=== PATIENT | male | born 1950 | race Caucasian/White ===

== ENCOUNTER → 2018-05-06 07:13 | Outpatient (CLI) | payer MEDICARE, MEDICAID, SELFPAY ==
[2018-05-06 08:38] LABS: Add Manual Diff / Slide Review NO; Basophils Percent Auto 0.7 % (0-2); Eosinophils Percent Auto 6.3 % (2-4); Hematocrit 40.4 % (41-53); Hemoglobin 13.9 g/dL (13.5-17.5); Lymphocytes Percent Auto 27.2 % (25-40); Mean Corpuscular HGB Conc 34.5 % (30-36); Mean Corpuscular Hemoglobin 31.1 PG (26-34); Mean Corpuscular Volume 90.1 fL (80-100); Monocytes Percent Auto 8.4 % (3-14); Neutrophils Absolute Auto 3700 /uL (3000-5900); Neutrophils Percent Auto 57.4 % (50-75); Platelet Count 120 X10^3/uL (150-400); Red Blood Cell Count 4.49 X10^6/uL (4.5-5.9); Red Cell Distribution Width 13.4 % (11.6-14.8); White Blood Cell Count 6.5 X10^3/uL (4.5-11.0)
[2018-05-06 08:43] LABS: BUN Creatinine Ratio 36.4 (6-22); Blood Urea Nitrogen 40 mg/dL (9-20); Calcium 8.6 mg/dL (8.4-10.2); Carbon Dioxide 25 mmol/L (22-32); Chloride 106 mmol/L (98-107); Cholesterol 196 mg/dL (140-199); Estimated Glomerular Filt Rate > 60.0 mL/min (>60); Glucose 152 mg/dL (80-110); HDL Cholesterol 27 mg/dL (40-60); HEMOLYSIS < 15 (0-50); LDL Cholesterol Calculated 111 mg/dL (<100); Potassium 4.9 mmol/L (3.4-5.1); Sodium 142 mmol/L (137-145); Triglycerides 288 mg/dL (35-150)
[2018-05-06 08:57] LABS: Hemoglobin A1C% w Est Avg Glu 5.9 % (4.0-6.0)
[2018-05-06 09:27] LABS: Hep C Virus Ab w/Reflex Quant NEGATIVE s/c (NEGATIVE)
== END ==
PROVIDERS: PCP Family Medicine; Visit Provider Internal Medicine Cardiovascular Disease
DX: I10 Essential (primary) hypertension (principal); E78.5 Hyperlipidemia, unspecified; E11.9 Type 2 diabetes mellitus without complications; Z20.5 Contact with and (suspected) exposure to viral hepatitis; E78.2 Mixed hyperlipidemia
CPT/HCPCS: 36415; 80048; 80061; 83036; 85025; 86803

== ENCOUNTER → 2018-06-28 07:06 | Outpatient (CLI) | payer MEDICARE, MEDICAID, SELFPAY ==
[2018-06-28 09:05] LABS: BUN Creatinine Ratio 18.3 (6-22); Blood Urea Nitrogen 22 mg/dL (9-20); Calcium 8.8 mg/dL (8.4-10.2); Carbon Dioxide 31 mmol/L (22-32); Chloride 103 mmol/L (98-107); Estimated Glomerular Filt Rate > 60.0 mL/min (>60); Glucose 90 mg/dL (80-110); HEMOLYSIS < 15 (0-50); Potassium 4.4 mmol/L (3.4-5.1); Sodium 143 mmol/L (137-145)
== END ==
PROVIDERS: PCP Family Medicine; Visit Provider Internal Medicine Advanced Heart Failure and Transplant Cardiology
DX: I25.5 Ischemic cardiomyopathy (principal); I42.9 Cardiomyopathy, unspecified
CPT/HCPCS: 36415; 80048

== ENCOUNTER 2018-07-06 13:14 | Day surgery (SDC) | payer MEDICARE, MEDICAID, SELFPAY ==
[2018-07-06] VITALS (7 sets, daily range): BP systolic 80–131; BP diastolic 54–75; PULSE 64–77; RESP 12–18; TEMP 36.4–36.8; O2SAT 95–97; BMI 27.8
[2018-07-06] MEDS: SODIUM CHLORIDE 0.9% 1,000 ML 42 ML IV (14:28)
--- NOTE | 2018-07-06 15:15 | PM.HP.1 ---
History of Present Illness Date Patient Seen: 07/06/18 Time Patient Seen: 15:15 Chief complaint: Colonoscopy; [id number] Narrative: First screening colonoscopy Patient History Medical History Atrial fibrillation (Acute) Chronic anticoagulation (Acute) Congestive heart failure (Acute) Diabetes mellitus (Acute) Hypertension (Acute) Family & Social History Social History: household members significant other Tobacco & Substance use: Smoking Status Never smoker Meds Home Medications Medication Instructions Recorded Confirmed Type warfarin [Jantoven] 5 mg PO #0 05/10/13 03/24/18 History carvedilol [Coreg] 12.5 mg PO BID #0 06/25/17 03/24/18 History gabapentin [Neurontin] 300 mg PO HS #60 cap 12/31/17 03/24/18 Rx glipizide 1 tab PO BID #60 tab 01/19/18 03/24/18 Rx Disabled Parking Permit ea #1 01/24/18 03/24/18 Rx amlodipine 10 mg PO QDAY #0 02/21/18 03/24/18 History metformin 1,000 mg PO BID #60 tab 06/06/18 Rx blood sugar diagnostic strips #100 each 06/23/18 Rx lisinopril 2.5 mg tablet 2.5 mg PO BID #180 tab 06/23/18 Rx Allergies Allergy/AdvReac Type Severity Reaction Status Date / Time No Known Drug Allergies Allergy Verified 07/06/18 14:46 Exam Vital Signs (past 8 hours): - 07/06/18 14:30 Temperature 97.5 F L Pulse Rate 67 Respiratory Rate 12 Blood Pressure 131/71 H Pulse Oximetry 97 Oxygen Delivery Method Room Air Narrative Exam Narrative: Oropharynx free of lesion Chest clear to auscultation and percussion but with decreased breath sounds throughout Cardiac exam reveals no S3 or murmur Assessment & Plan Plan: Assessment/Plan Narrative: Need for 1st screening colonoscopy We have obtained clearance from Cardiology to hold warfarin for the last 5 days which he has done. They have also given him clearance for his pacemaker defibrillator. I do not expect will need to use any cautery.
--- NOTE | 2018-07-06 15:46 | PM.OP.ENDO ---
Operative Date/Time/Diagnoses Date of procedure: 07/06/18 Time of procedure: 15:46 Pre-op diagnosis: See indications Post-op diagnosis: same (See findings) Procedure & Clinicians Study performed: Colonoscopy Same procedure as scheduled: Yes Indications: Screening, 1st colonoscopy Surgeon: Carla Shin Procedure Notes Procedure in detail: After informed consent was obtained the patient was placed in left lateral decubitus position. The video colonoscope was introduced the rectum slowly advanced to the cecum. Colon was quite long but eventually the cecum was reached. Preparation was good but not excellent. On slow withdrawal mucosa was carefully examined. Scope was removed patient tolerated procedure well Blood loss none complications none Sedation Mac per anesthesia Findings 1. Extensive diverticulosis throughout colon with significant looping and a very long colon. 2. Otherwise negative colonoscopy to cecum Patient will need follow-up colonoscopy in 10 years. He should restart his Coumadin today.
== END 2018-07-06 16:27 ==
LOC: ENDO 13:15
PROVIDERS: PCP Family Medicine; Visit Provider Internal Medicine Gastroenterology
PROC: 0DJD8ZZ Inspection of Lower Intestinal Tract, Via Natural or Artificial Opening Endoscopic (ICD-10-PCS; CPT 45378; principal; 2018-07-06 15:00)
DX: Z12.11 Encounter for screening for malignant neoplasm of colon (principal); Z80.0 Family history of malignant neoplasm of digestive organs; I48.91 Unspecified atrial fibrillation; Z79.01 Long term (current) use of anticoagulants; I25.5 Ischemic cardiomyopathy; Z95.0 Presence of cardiac pacemaker; Z95.1 Presence of aortocoronary bypass graft; E11.9 Type 2 diabetes mellitus without complications; I10 Essential (primary) hypertension; Z79.84 Long term (current) use of oral hypoglycemic drugs; Z87.891 Personal history of nicotine dependence; K57.30 Diverticulosis of large intestine without perforation or abscess without bleeding
CPT/HCPCS: G0105; J2250; J2704; J3010

== ENCOUNTER 2018-08-26 08:18 | Emergency (ER) | payer MEDICARE, MEDICAID, SELFPAY ==
--- NOTE | 2018-08-26 08:18 | ED_ITS ---
HPI - General Adult General Chief complaint: Weakness Stated complaint: overheated, got wobbly, fell down Time Seen by Provider: 08/26/18 08:18 Source: patient Mode of arrival: wheelchair Limitations: no limitations History of Present Illness HPI narrative: 68-year-old male with history of diabetes, hypertension, congestive heart failure here for evaluation of an episode that he had this morning. He states that approximately 1 hr prior to arrival he was laying in bed. He states that he was awake. He states that he tried to get up but was unable to. He states that he felt like he was overheated. He states that he was while we. Denies any other symptoms at the time to include chest pain, lightheadedness, vision changes, nausea and vomiting. He stated that he did not fall this morning he just could not get up off of his knees. He was able to make it to the phone to call his friend. He checked his blood sugar at home and it was 143. He stated that he felt like his blood sugar was low. States the time of his arrival here in the emergency department feels much better than when he did this morning. Related Data Home Medications Medication Instructions Recorded Confirmed warfarin [Jantoven] 5 mg PO #0 05/10/13 03/24/18 Disabled Parking Permit 1 ea MISCELLANEOUS DIRECTED 08/26/18 08/26/18 carvedilol 3 tab PO BIDWM 08/26/18 08/26/18 clopidogrel 1 tab PO DAILY 08/26/18 08/26/18 fluorouracil 1 applic TOPICAL [id number] 08/26/18 08/26/18 gabapentin [Neurontin] 300 mg PO BID 08/26/18 08/26/18 metformin 1,000 mg PO BIDWM 08/26/18 08/26/18 rosuvastatin 2.5 mg PO MOWEFR 08/26/18 08/26/18 warfarin 1 tab PO SUTUTHSA 08/26/18 08/26/18 warfarin 2.5 mg PO MOWE 08/26/18 08/26/18 Previous Rx's Medication Instructions Recorded blood sugar diagnostic strips #100 each 06/23/18 lisinopril 2.5 mg tablet 2.5 mg PO BID #180 tab 06/23/18 glipizide 5 mg tablet 5 mg PO BID #60 tab 09/21/18 Allergies Allergy/AdvReac Type Severity Reaction Status Date / Time No Known Drug Allergies Allergy Verified 07/06/18 14:46 Review of Systems Constitutional Denies chills, Denies headache(s) and Reports weakness Eyes Denies change in vision ENT Ears, Nose, Mouth, and Throat: Denies vertigo, Denies dizziness and Denies headache(s) Cardiovascular Denies chest pain, Reports diaphoresis, Denies rapid heart rate, Denies palpitations, Denies dyspnea and Denies slow heart rate Respiratory Denies cough and Denies dyspnea Gastrointestinal Gastrointestinal: Denies abdominal pain, Denies dyspepsia, Denies nausea and Denies vomiting Genitourinary Denies dysuria Musculoskeletal Denies myalgias and Denies arthralgias Integumentary/Breasts Denies lesions and Denies rash Neurologic Denies confusion, Denies vertigo, Denies dizziness, Denies headache(s) and Reports weakness Psychiatric Denies confusion Endocrine Denies palpitations Hematologic/Lymphatic Denies easy bleeding and Denies easy bruising PFSH Medical History Atrial fibrillation (Acute) Chronic anticoagulation (Acute) Congestive heart failure (Acute) Diabetes mellitus (Acute) Hypertension (Acute) Surgical History History of permanent cardiac pacemaker placement (Acute) Social History household members: significant other Smoking Status: Never smoker Exam Initial Vital Signs Initial Vital Signs: Vital Signs Temperature 98.2 F 08/26/18 08:27 Pulse Rate 78 08/26/18 08:27 Respiratory Rate 18 08/26/18 08:27 Blood Pressure 127/70 08/26/18 08:27 Pulse Oximetry 100 08/26/18 08:27 Const General: cooperative, comfortable, well developed, well groomed and No acute distress Orientation: alert, awake and oriented x3 HENMT Head: normal to inspection and normocephalic Resp Effort & Inspection: normal respiratory effort Auscultation: clear to auscultation bilaterally Cardio Rate: regular rate Rhythm: regular rhythm Pulses: radial pulses present GI Inspection: non-distended Palpation: soft, No firm and No tender Other: Diastasis recti Back/Spine/Pelvis Back: No CVA tenderness Skin Lesions: no lesions Rashes: no rashes Neuro General: alert, awake and oriented x3 Cognition: normal cognition Motor: muscle tone normal throughout Sensory Exam: no sensory deficits noted Extrem General: normal to inspection and capillary refill normal Psych Appearance: grossly normal and well kempt Course Orders Ordered: ED Orders 08/26/18 08:19 EKG-12 Lead Stat 08/26/18 08:30 Complete Blood Count AUTO DIFF Stat Comprehensive Metabolic Panel Stat Partial Thromboplastin Time Stat Prothrombin Time INR Stat Discontinued Medications Sodium Chloride (Normal Saline 0.9%) 1,000 mls @ 500 mls/hr IV BOLUS ONE Stop: 08/26/18 10:22 Last Infusion: 08/26/18 10:09 Dose: 0 mls/hr Admin: 08/26/18 08:38 Dose: 500 mls/hr Vital Signs - 8 hr 08/26/18 08:27 08/26/18 10:14 Temperature 98.2 F Pulse Rate 78 Respiratory Rate 18 Blood Pressure 127/70 Pulse Oximetry 100 100 Medical Decision Making Lab Data Lab results reviewed: Yes I reviewed the patient's lab results. Result diagrams: 08/26/18 08:30 08/26/18 08:30 Lab Results 08/26/18 08/26/18 08/26/18 Range/Units 08:30 08:30 08:30 WBC 7.3 (4.5-11.0) X10^3/uL RBC 4.51 (4.5-5.9) X10^6/uL Hgb 14.2 (13.5-17.5) g/dL Hct 41.0 (41-53) % MCV 90.9 (80-100) fL MCH 31.4 (26-34) PG MCHC 34.5 (30-36) % RDW 13.1 (11.6-14.8) % Plt Count 96 L (150-400) X10^3/uL Neut % (Auto) 76.9 H (50-75) % Lymph % (Auto) 11.5 L (25-40) % [place] % (Auto) 9.9 (3-14) % Eos % (Auto) 1.1 L (2-4) % Baso % (Auto) 0.6 (0-2) % Neut # (Auto) 5600 (6924-6087) /uL PT 26.1 H (10.1-12.7) SECONDS INR 2.4 H (0.9-1.3) APTT 41 H (26.4-36.2) SECONDS Sodium 142 (137-145) mmol/L Potassium 4.5 (3.4-5.1) mmol/L Chloride 105 (98-107) mmol/L Carbon Dioxide 26 (22-32) mmol/L BUN 24 H (9-20) mg/dL Creatinine 1.10 (0.66-1.25) mg/dL Estimated GFR > 60.0 (>60) mL/min BUN/Creatinine Ratio 21.8 (6-22) Glucose 153 H (80-110) mg/dL Calcium 8.8 (8.4-10.2) mg/dL Total Bilirubin 1.4 H (0.2-1.3) mg/dL AST 24 (17-59) IU/L ALT 25 (21-72) IU/L Alkaline Phosphatase 65 (38-126) U/L Total Protein 7.4 (6.3-8.2) g/dL Albumin 4.4 (3.5-5.0) g/dL Globulin 3.0 (1.7-4.1) g/dL Albumin/Globulin Ratio 1.5 (1.0-2.8) Point of Care Testing Glucose POC 144 Point of care testing: Point of Care Testing Glucose POC 144 ECG Data Attestation: I personally reviewed and interpreted this ECG as follows: Prior ECG tracings: not available for review Interpretation: Ventricular paced Rate is [address] changes concerning for ischemia MDM Narrative Medical decision making narrative: Patient was able to tolerate oral intake. Had no focal neurologic deficits here in the emergency department. Did ambulate around the emergency department a little slower than normal according to him but without any weakness. It appears that his pacemaker is working appropriately. He is not hypoglycemic. His electrolytes are unremarkable. Consider doing a head CT however given his nonfocal exam and the fact that he did not hit his head I feel that we could hold on this for now. He is on Coumadin and his INR is 2.4. I did inform the patient of this. Unsure the exact etiology of his symptoms however they do seem to be almost completely resolved by now. Doubt CVA. Symptoms are not consistent with TIA. He was not hypoglycemic. Doubt arrhythmia given his lack of other symptoms. This could be a period of hypotension since he was getting up from a lying position at the time. He has not been hypotensive here in the emergency department I did discuss all this with the patient. Will hold on further workup for now. He was given return precautions. He expressed understanding and agreement with plan. Discharge Plan Departure Patient Disposition: Home Clinical Impression: Weakness Instructions: DI for Muscle Weakness, DI for Dizziness-Nonvertigo Activity Restrictions/Additional Instructions: Continue all of your medications as directed. Make sure your increasing your fluid intake. If your symptoms return or if you develops any new symptoms return to the emergency department for further evaluation. Prescriptions: No Action warfarin [Jantoven] 5 MG tablet 5 mg PO Qty: 0 RF: 0 lisinopril 2.5 mg tablet 2.5 mg PO BID Qty: 180 RF: 3 blood sugar diagnostic [True Metrix Glucose Test Strip] strip .ROUTE .MEDSUPPLY Qty: 100 RF: 3 glipizide 5 mg tablet 5 mg PO BID Qty: 60 RF: 5 carvedilol 6.25 mg tablet 3 tab PO BIDWM RF: 0 fluorouracil 5 % cream 1 applic Topical [id number] RF: 0 clopidogrel 75 mg tablet 1 tab PO DAILY RF: 0 warfarin 5 mg tablet 1 tab PO SUTUTHSA RF: 0 warfarin 5 mg tablet 2.5 mg PO MOWE RF: 0 rosuvastatin 5 mg tablet 2.5 mg PO MOWEFR RF: 0 gabapentin [Neurontin] 300 MG capsule 300 mg PO BID RF: 0 Disabled Parking Permit 1 ea miscellaneous DIRECTED RF: 0 metformin 1,000 mg tablet 1,000 mg PO BIDWM RF: 0
[2018-08-26 08:27] VITALS: BP 127/70; PULSE 78; RESP 18; TEMP 36.8; O2SAT 100; BMI 27.6
[2018-08-26] MEDS: SODIUM CHLORIDE 0.9% 1,000 ML 500 ML IV (08:38)
[2018-08-26 08:41] LABS: Add Manual Diff / Slide Review NO; Basophils Percent Auto 0.6 % (0-2); Eosinophils Percent Auto 1.1 % (2-4); Hemoglobin 14.2 g/dL (13.5-17.5); Lymphocytes Percent Auto 11.5 % (25-40); Mean Corpuscular HGB Conc 34.5 % (30-36); Mean Corpuscular Hemoglobin 31.4 PG (26-34); Mean Corpuscular Volume 90.9 fL (80-100); Monocytes Percent Auto 9.9 % (3-14); Neutrophils Absolute Auto 5600 /uL (3000-5900); Neutrophils Percent Auto 76.9 % (50-75); Platelet Count 96 X10^3/uL (150-400); Red Blood Cell Count 4.51 X10^6/uL (4.5-5.9); Red Cell Distribution Width 13.1 % (11.6-14.8); White Blood Cell Count 7.3 X10^3/uL (4.5-11.0)
[2018-08-26 08:48] LABS: INR 2.4 (0.9-1.3); Prothrombin Time 26.1 SECONDS (10.1-12.7)
[2018-08-26 08:50] LABS: PTT Partial Thromboplastin Tim 41 SECONDS (26.4-36.2)
[2018-08-26 08:52] LABS: Alanine Aminotransferase 25 IU/L (21-72); Albumin 4.4 g/dL (3.5-5.0); Albumin Globulin Ratio 1.5 (1.0-2.8); Alkaline Phosphatase 65 U/L (38-126); Aspartate Aminotransferase 24 IU/L (17-59); BUN Creatinine Ratio 21.8 (6-22); Bilirubin Total 1.4 mg/dL (0.2-1.3); Blood Urea Nitrogen 24 mg/dL (9-20); Calcium 8.8 mg/dL (8.4-10.2); Carbon Dioxide 26 mmol/L (22-32); Chloride 105 mmol/L (98-107); Estimated Glomerular Filt Rate > 60.0 mL/min (>60); Glucose 153 mg/dL (80-110); HEMOLYSIS < 15 (0-50); Potassium 4.5 mmol/L (3.4-5.1); Sodium 142 mmol/L (137-145); Total Protein 7.4 g/dL (6.3-8.2)
[2018-08-26 10:14] VITALS: O2SAT 100
[2018-08-26 10:35] VITALS: BP 125/67; PULSE 75; RESP 16; O2SAT 98
== END 2018-08-26 10:36 | disposition home or self-care (01) ==
PROVIDERS: Emergency Provider Emergency Medicine; PCP Family Medicine
DX: R53.1 Weakness (principal)
CPT/HCPCS: 36591; 80053; 82962; 85025; 85610; 85730; 93005; 93010; 93041; 96360; 96361; 99283; 99284

== ENCOUNTER → 2018-09-19 07:04 | Outpatient (CLI) | payer MEDICARE, MEDICAID, SELFPAY ==
[2018-09-19 09:02] LABS: Hemoglobin A1C% w Est Avg Glu 5.8 % (4.0-6.0)
[2018-09-19 09:34] LABS: Vitamin D 25 Hydroxy (D3) 18.7 ng/mL (30.0-100.0)
== END ==
PROVIDERS: PCP Student in an Organized Health Care Education/Training Program; Visit Provider Student in an Organized Health Care Education/Training Program
DX: E55.9 Vitamin D deficiency, unspecified (principal); E11.9 Type 2 diabetes mellitus without complications
CPT/HCPCS: 36415; 82306; 83036

== ENCOUNTER 2018-11-10 08:30 | Outpatient (RCR) | payer MEDICARE, MEDICAID, SELFPAY ==
[2018-08-16 10:44] VITALS: BP 128/84; BP 132/80; BMI 27.8
[2018-09-12 16:02] VITALS: BP 98/60
[2018-10-10 15:43] VITALS: BP 132/70
[2018-11-10 14:37] VITALS: BP 128/70; BMI 27.0
== END 2018-11-23 15:10 ==
LOC: CAR 08:30
PROVIDERS: PCP Family Medicine; Visit Provider Internal Medicine Interventional Cardiology
DX: Z95.5 Presence of coronary angioplasty implant and graft (principal)
CPT/HCPCS: 93798

== ENCOUNTER → 2019-04-14 07:11 | Outpatient (CLI) | payer MEDICARE, MEDICAID, SELFPAY ==
[2019-04-14 08:48] LABS: Blood Urea Nitrogen 27 mg/dL (9-20); Calcium 9.5 mg/dL (8.4-10.2); Carbon Dioxide 27 mmol/L (22-32); Chloride 103 mmol/L (98-107); Estimated Glomerular Filt Rate > 60.0 mL/min (>60); Glucose 150 mg/dL (80-110); HEMOLYSIS < 15 (0-50); Potassium 5.1 mmol/L (3.4-5.1); Sodium 139 mmol/L (137-145)
== END ==
PROVIDERS: PCP Student in an Organized Health Care Education/Training Program; Visit Provider Student in an Organized Health Care Education/Training Program
DX: E11.9 Type 2 diabetes mellitus without complications (principal); E16.2 Hypoglycemia, unspecified; E87.6 Hypokalemia
CPT/HCPCS: 36415; 80048; 83036

== ENCOUNTER → 2019-06-20 07:19 | Outpatient (CLI) | payer MEDICARE, MEDICAID, SELFPAY ==
[2019-06-20 07:48] LABS: Add Manual Diff / Slide Review NO; Basophils Absolute Auto 0 /uL (0-100); Basophils Percent Auto 0.5 % (0-2); Eosinophils Absolute Auto 300 /uL (0-450); Eosinophils Percent Auto 4.5 % (2-4); Hematocrit 38.6 % (41-53); Hemoglobin 13.1 g/dL (13.5-17.5); Lymphocytes Absolute Auto 1400 /uL (1100-4500); Lymphocytes Percent Auto 24.9 % (25-40); Mean Corpuscular Volume 91.2 fL (80-100); Monocytes Absolute Auto 600 /uL (0-900); Monocytes Percent Auto 9.9 % (3-14); Neutrophils Absolute Auto 3400 /uL (1500-7000); Neutrophils Percent Auto 60.2 % (50-75); Platelet Count 102 X10^3/uL (150-400); Red Blood Cell Count 4.23 X10^6/uL (4.5-5.9); Red Cell Distribution Width 12.8 % (11.6-14.8); White Blood Cell Count 5.6 X10^3/uL (4.5-11.0)
== END ==
PROVIDERS: Family Provider Student in an Organized Health Care Education/Training Program; PCP Student in an Organized Health Care Education/Training Program; Visit Provider Internal Medicine Cardiovascular Disease
DX: I10 Essential (primary) hypertension (principal)
CPT/HCPCS: 36415; 85025

== ENCOUNTER → 2019-07-04 07:08 | Outpatient (CLI) | payer MEDICARE, MEDICAID, SELFPAY ==
[2019-07-04 07:49] LABS: Add Manual Diff / Slide Review NO; Basophils Absolute Auto 100 /uL (0-100); Eosinophils Absolute Auto 300 /uL (0-450); Eosinophils Percent Auto 4.6 % (2-4); Hematocrit 41.3 % (41-53); Lymphocytes Absolute Auto 1600 /uL (1100-4500); Lymphocytes Percent Auto 27.7 % (25-40); Mean Corpuscular HGB Conc 33.8 % (30-36); Mean Corpuscular Hemoglobin 30.8 PG (26-34); Mean Corpuscular Volume 91.2 fL (80-100); Monocytes Absolute Auto 500 /uL (0-900); Monocytes Percent Auto 8.2 % (3-14); Neutrophils Absolute Auto 3400 /uL (1500-7000); Neutrophils Percent Auto 58.5 % (50-75); Platelet Count 99 X10^3/uL (150-400); Red Blood Cell Count 4.53 X10^6/uL (4.5-5.9); Red Cell Distribution Width 13.2 % (11.6-14.8); White Blood Cell Count 5.8 X10^3/uL (4.5-11.0)
[2019-07-04 08:08] LABS: Blood Urea Nitrogen 23 mg/dL (9-20); Calcium 9.3 mg/dL (8.4-10.2); Carbon Dioxide 31 mmol/L (22-32); Chloride 102 mmol/L (98-107); Cholesterol 131 mg/dL (140-199); Estimated Glomerular Filt Rate > 60.0 mL/min (>60); Glucose 134 mg/dL (80-110); HDL Cholesterol 41 mg/dL (40-60); HEMOLYSIS < 15 (0-50); LDL Cholesterol Calculated 74 mg/dL (<100); Potassium 4.7 mmol/L (3.4-5.1); Sodium 140 mmol/L (137-145); Triglycerides 82 mg/dL (35-150)
== END ==
PROVIDERS: Family Provider Student in an Organized Health Care Education/Training Program; PCP Student in an Organized Health Care Education/Training Program; Visit Provider Internal Medicine Cardiovascular Disease
DX: I10 Essential (primary) hypertension (principal)
CPT/HCPCS: 36415; 80048; 80061; 85025

== ENCOUNTER → 2019-07-28 07:05 | Outpatient (CLI) | payer MEDICARE, MEDICAID, SELFPAY ==
[2019-07-28 08:28] LABS: BUN Creatinine Ratio 36.7 (6-22); Blood Urea Nitrogen 33 mg/dL (9-20); Calcium 8.8 mg/dL (8.4-10.2); Carbon Dioxide 29 mmol/L (22-32); Chloride 104 mmol/L (98-107); Estimated Glomerular Filt Rate > 60.0 mL/min (>60); Glucose 148 mg/dL (80-110); HEMOLYSIS < 15 (0-50); Potassium 4.4 mmol/L (3.4-5.1); Sodium 142 mmol/L (137-145)
== END ==
PROVIDERS: PCP Student in an Organized Health Care Education/Training Program; Visit Provider Internal Medicine Advanced Heart Failure and Transplant Cardiology
DX: I48.91 Unspecified atrial fibrillation (principal); I25.5 Ischemic cardiomyopathy
CPT/HCPCS: 36415; 80048

== ENCOUNTER → 2019-08-11 07:05 | Outpatient (CLI) | payer MEDICARE, MEDICAID, SELFPAY ==
[2019-08-11 08:12] LABS: Hemoglobin A1C% w Est Avg Glu 6.1 % (4.0-6.0)
[2019-08-11 08:46] LABS: Creatinine Urine Random 39.6 mg/dL
[2019-08-11 08:49] LABS: Prostate Specific Antigen Scrn 0.368 ng/mL (0.1-4.0)
[2019-08-11 09:05] LABS: Microalbumi Creatinin Ratio Ur 1070.7 ug/mg CR (<30); Microalbumin Urine Random 42.4 mg/dL (0-1.6)
== END ==
PROVIDERS: PCP Student in an Organized Health Care Education/Training Program; Visit Provider Student in an Organized Health Care Education/Training Program
DX: E11.9 Type 2 diabetes mellitus without complications (principal); Z12.5 Encounter for screening for malignant neoplasm of prostate
CPT/HCPCS: 36415; 82043; 82570; 83036; G0103

== ENCOUNTER 2019-11-03 14:30 | Outpatient (RCR) | payer MEDICARE, MEDICAID, SELFPAY ==
--- NOTE | 2019-08-22 12:51 | PT.OTN ---
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 Pt reports he feels wobbly and off balance when he is up moving around, denies any rotation vertigo or dizziness with position change . Pt also notes he has CHF, and is on a variety of medication that he feels messes me up. t reports difficulty when trying to sit down, often just ends up plopping into a chair, and also struggles walking down hills or stairs. 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 PT-OP-C Subjective Start: 08/22/19 12:21 Freq: Status: Active Protocol: Document 08/22/19 09:45 DCW (Rec: 08/22/19 12:50 DCW [id number]) OP-PT Subjective Patient Comments Patient Comments Pt notes an overall worsening over the past few months Patient Reported Progress Worse Patient Questionnaires ABC- Activity Specific Balance Confidence Scale ABC Score 56.25% ABC Functional Impairment 40 to <60% Impaired (Score 41- 60) Dizziness Handicap Inventory DHI Score 54% DHI Functional Impairment 40 to 59% Impaired (Score 40- 59) PT-OP-D Balance Start: 08/22/19 12:21 Freq: Status: Active Protocol: Document 08/22/19 09:45 DCW (Rec: 08/22/19 12:50 DCW [id number]) OP-PT Balance Assessment Sitting Balance Static Sitting Balance Ability Normal Dynamic Sitting Balance Ability Normal Standing Balance Static Standing Balance Ability Good Dynamic Standing Balance Ability Fair Balance Tests Chun Balance Test Chun Balance Test Score 49/56 Chun Impairment Rating 1 to 19% Impaired (Score 45-55 ) mCTSIB mCTSIB Position 1 Mild Sway mCTSIB Position 2 Mild Sway mCTSIB Position 3 Mild Sway mCTSIB Position 4 Moderate Sway Chun Balance Assessment Evaluation Sitting to Standing Ability Independent w/out Hands Unsupported Stance Safely- 2 minutes Sitting Unsupported, Feet on Floor Safely- 2 minutes Standing to Sitting Ability Independent, Uncontrolled Transfer Ability Safely, Hand Use Unsupported Stance- Eyes Closed Safely, 10 seconds Unsupported Stance- Eyes Open Independent, 1 minute Reaching Forward Standing Confidently, 10 inches Pick- Up Object From Floor Independent/Safe Look Behind Shoulder - Standing Shifts Weight Well Turning 360 Degrees Turns , < 4 secs Unsupported Stance, Alternating Feet on (I)- 8 Steps in 20 secs Stair Unsupported Tandem Stance Holds Tandem- 30 seconds Unilateral Leg Stance Lifts Leg/Holds 5-10 secs Total Score Chun Total Score (out of 56 points) 49 Chun Impairment Rating 1 to 19% Impaired (Score 45-55 ) Steele Fall Scale Copyright Permission PT-OP-E Functional Tests Start: 08/22/19 12:21 Freq: Status: Active Protocol: Document 08/22/19 09:45 DCW (Rec: 08/22/19 12:50 DCW [id number]) Functional Tests Dynamic Gait Index (DGI) Score 18/24 DGI Impairment Rating 20 to <40% Impaired (Score 15- 19) Functional Gait Assessment Score 19/30 Functional Gait Assessment Impairment 20 to <40% Impaired (Score 19- Rating 24) PT-OP-M Strength Start: 08/22/19 12:21 Freq: Status: Active Protocol: Document 08/22/19 09:45 DCW (Rec: 08/22/19 12:50 DCW [id number]) Hip Strength Hip Manual Muscle Testing Right Flexion (L2) 5 Normal Extension (S1) 4+ Good+ Abduction 5 Normal Adduction 5 Normal Left Flexion (L2) 5 Normal Extension (S1) 4+ Good+ Abduction 5 Normal Adduction 5 Normal Knee Strength Knee Manual Muscle Testing Right Flexion (S2) 5 Normal Extension (L3) 5 Normal Left Flexion (S2) 5 Normal Extension (L3) 5 Normal PT-OP-T Assessment and Plan Start: 08/22/19 12:21 Freq: Status: Active Protocol: Document 08/22/19 09:45 DCW (Rec: 08/22/19 12:50 DCW [id number]) Physical Therapy Assessment Rehab Potential Rehabilitation Potential Good Evaluation Complexity Number of Personal Factors/Comorbidities 1-2 Number of Body Systems Impaired 4 or More Clinical Presentation at Evaluation Unstable Impairments Impairments Balance,Gait,Posture,ROM, Strength Other Concerns Barriers to Rehabilitation Neuropathy, Hx falls, Quad weakness, CHF, Large list of medications Goals Three Impairment Pt unable to work at his job as a household personal assistant [employer] Goal (LTG) Pt to score >90% on the ABC scale, demonstrating increased confidence in his balance, allowing him to return to work . Two Impairment Pt has a history of falls Assisted Goal (LTG) Pt to report no falls on near LOB over a one month period LTG Duration 10/31/19 One Impairment Pt does not have an appropriate home exercise program Short Term Goal (STG) Pt to be independent and compliant with an appropriate HEP STG Duration 09/22/19 Assessment Summary Assessment Pt presents with a multi- factorial balance deficit. Pt has a history of DM II with resulting polyneuropathy, worsening over the past few years. Pt also exhibits overall very good leg strength , however struggles greatly with eccentric quad contraction, resulting in difficulty descending stairs or hills, and an inability to control his descent when attempting to sit down. Pt's static balance (Chun score 49/ 56) is fairly good, however pt 's Dynamic balance ( DGI, FGA) shows limitations and an increased falls risk. Pt will benefit from skilled therapy focusing on balance training, NMR, and eccentric quad strengthening. Physical Therapy Plan Frequency and Duration Frequency of Treatment 2x/Week Duration of Treatment 10 weeks Plan of Care Start Date 08/22/19 Plan of Care End Date 10/31/19 Therapeutic Interventions Therapeutic Interventions Aquatic Therapy,Balance Training,Gait Training,Home Exercise Program,Manual Therapy,Neuromuscular Re- education,Patient/Caregiver Education,Self-Care/Home Management,Soft Tissue Mobilization,Therapeutic Activities,Therapeutic Exercises Next Visit Focus/Plan Next Note Type Treatment Note Next Visit Plan Balance training, Neuromuscular Re-ed, 6MWT, TUG
--- NOTE | 2019-08-22 12:51 | PT.OPPOC ---
Current Diagnoses Type 2 diabetes mellitus without complications (08/22/19) Other abnormalities of gait and mobility (08/22/19) History of falling (08/22/19) Visit Care Team Role Provider Type Alessandro Boo MD Attending Provider Physician Primary Care Provider Specialty: Internal Medicine Address: [address] [place] [address], [address] [place] [address], [id number] Email: [email or web address] Plan Of Care PT-OP-T Assessment and Plan Start: 08/22/19 12:21 Freq: Status: Active Protocol: Document 08/22/19 09:45 DCW (Rec: 08/22/19 12:50 DCW [id number]) Physical Therapy Assessment Rehab Potential Rehabilitation Potential Good Evaluation Complexity Number of Personal Factors/Comorbidities 1-2 Number of Body Systems Impaired 4 or More Clinical Presentation at Evaluation Unstable Impairments Impairments Balance,Gait,Posture,ROM, Strength Other Concerns Barriers to Rehabilitation Neuropathy, Hx falls, Quad weakness, CHF, Large list of medications Goals Three Impairment 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 Two Impairment Pt has a history of falls Alf Goal (LTG) Pt to report no falls on near LOB over a one month period LTG Duration 10/31/19 One Impairment Pt does not have an appropriate home exercise program Short Term Goal (STG) Pt to be independent and compliant with an appropriate HEP STG Duration 09/22/19 Assessment Summary Assessment Pt presents with a multi- factorial balance deficit. Pt has a history of DM II with resulting polyneuropathy, worsening over the past few years. Pt also exhibits overall very good leg strength , however struggles greatly with eccentric quad contraction, resulting in difficulty dsecending stairs or hills, and an inability to control his descent when attempting to sit down. Pt's static balance (Chun score 49/ 56) is fairly good, however pt 's Dynamic balance ( DGI, FGA) shows limitations and an increased falls risk. Pt will benefit from skilled therapy focusing on balance training, NMR, and eccentric quad strengthening. Physical Therapy Plan Frequency and Duration Frequency of Treatment 2x/Week Duration of Treatment 10 weeks Plan of Care Start Date 08/22/19 Plan of Care End Date 10/31/19 Therapeutic Interventions Therapeutic Interventions Aquatic Therapy,Balance Training,Gait Training,Home Exercise Program,Manual Therapy,Neuromuscular Re- education,Patient/Caregiver Education,Self-Care/Home Management,Soft Tissue Mobilization,Therapeutic Activities,Therapeutic Exercises Next Visit Focus/Plan Next Note Type Treatment Note Next Visit Plan Balance training, Neuromuscular Re-ed, 6MWT, TUG Plan of Care Dates Plan of Care Start Date 08/22/19 Plan of Care End Date 10/31/19
--- NOTE | 2019-08-25 16:13 | PT.OTN ---
Current Diagnoses Type 2 diabetes mellitus without complications (08/25/19) Other abnormalities of gait and mobility (08/25/19) History of falling (08/25/19) Physical Therapy Treatment Note PT-OP-A Visit Information Start: 08/22/19 12:21 Freq: Status: Active Protocol: Document 08/25/19 15:15 DCW (Rec: 08/25/19 16:13 DCW [id number]) Out-Patient Physical Therapy Visit Information Visit Information Visit Type Treatment Note Visit Start Time 15:15 Visit Stop Time 16:00 Total Visit Minutes 45 Visit Number 2 Number of OVEN WORKER Visits 0 Evaluation Information Evaluation Date 08/22/19 PT-OP-B Current Condition Start: 08/22/19 12:21 Freq: Status: Active Protocol: Document 08/22/19 09:45 DCW (Rec: 08/22/19 12:50 DCW [id number]) Current Condition History of Current Condition Onset Date 6-7 years Current Complaints imbalance History of Current Condition Pt is a 69 year old male presenting with a long- standing history of imbalance, with a recent worsening of symptoms. Pt reports he feels wobbly and off balance when he is up moving around, denies any rotation vertigo or dizziness with position change . Pt also notes he has CHF, and is on a variety of medication that he feels messes me up. t reports difficulty when trying to sit down, often just ends up plopping into a chair, and also struggles walking down hills or stairs. 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 PT-OP-C Subjective Start: 08/22/19 12:21 Freq: Status: Active Protocol: Document 08/25/19 15:15 DCW (Rec: 08/25/19 16:13 DCW [id number]) OP-PT Subjective Patient Comments Patient Comments Pt reports he is doing pretty well today. PT-OP-D Balance Start: 08/22/19 12:21 Freq: Status: Active Protocol: Document 08/22/19 09:45 DCW (Rec: 08/22/19 12:50 DCW [id number]) OP-PT Balance Assessment Sitting Balance Static Sitting Balance Ability Normal Dynamic Sitting Balance Ability Normal Standing Balance Static Standing Balance Ability Good Dynamic Standing Balance Ability Fair Balance Tests Chun Balance Test Chun Balance Test Score 49/56 Chun Impairment Rating 1 to 19% Impaired (Score 45-55 ) mCTSIB mCTSIB Position 1 Mild Sway mCTSIB Position 2 Mild Sway mCTSIB Position 3 Mild Sway mCTSIB Position 4 Moderate Sway Chun Balance Assessment Evaluation Sitting to Standing Ability Independent w/out Hands Unsupported Stance Safely- 2 minutes Sitting Unsupported, Feet on Floor Safely- 2 minutes Standing to Sitting Ability Independent, Uncontrolled Transfer Ability Safely, Hand Use Unsupported Stance- Eyes Closed Safely, 10 seconds Unsupported Stance- Eyes Open Independent, 1 minute Reaching Forward Standing Confidently, 10 inches Pick- Up Object From Floor Independent/Safe Look Behind Shoulder - Standing Shifts Weight Well Turning 360 Degrees Turns , < 4 secs Unsupported Stance, Alternating Feet on (I)- 8 Steps in 20 secs Stair Unsupported Tandem Stance Holds Tandem- 30 seconds Unilateral Leg Stance Lifts Leg/Holds 5-10 secs Total Score Chun Total Score (out of 56 points) 49 Chun Impairment Rating 1 to 19% Impaired (Score 45-55 ) Steele Fall Scale Copyright Permission PT-OP-E Functional Tests Start: 08/22/19 12:21 Freq: Status: Active Protocol: Document 08/25/19 15:15 DCW (Rec: 08/25/19 16:13 DCW [id number]) Functional Tests 6 Minute Walk Test Distance 1136 Device Used none Timed Up and Go (TUG) Score 11.4 seconds Comments 3-trial average PT-OP-M Strength Start: 08/22/19 12:21 Freq: Status: Active Protocol: Document 08/22/19 09:45 DCW (Rec: 08/22/19 12:50 DCW [id number]) Hip Strength Hip Manual Muscle Testing Right Flexion (L2) 5 Normal Extension (S1) 4+ Good+ Abduction 5 Normal Adduction 5 Normal Left Flexion (L2) 5 Normal Extension (S1) 4+ Good+ Abduction 5 Normal Adduction 5 Normal Knee Strength Knee Manual Muscle Testing Right Flexion (S2) 5 Normal Extension (L3) 5 Normal Left Flexion (S2) 5 Normal Extension (L3) 5 Normal PT-OP-Q Treatments Start: 08/22/19 12:21 Freq: Status: Active Protocol: Document 08/25/19 15:15 DCW (Rec: 08/25/19 16:13 DC [id number]) Gym Equipment Shuttle Recovery Unilateral Squats Resistance 62# Reps/Time Focus on Eccentric contraction Bilateral Squats Resistance 125# Reps/Time Focus on Eccentric contraction Shuttle Balance Red Details Wide SHELLEY (EO/EC), Staggered Stance Neuro Re-Education Treatment Balance Activities Hurdles/Foam Details Hurdles Surface Foam stepping stones Comments Fwd, Side-stepping Amb /c head turns Details Horizontal/Vertical head turns , eyes on target Surface firm Tandem Ambulation Details Tandem Ambulation Other Activities Testing Details TUG, 6 MWT PT-OP-T Assessment and Plan Start: 08/22/19 12:21 Freq: Status: Active Protocol: Document 08/25/19 15:15 DC (Rec: 08/25/19 16:13 DC [id number]) Physical Therapy Assessment Impairments Impairments Balance,Gait,Posture,ROM, Strength Other Concerns Barriers to Rehabilitation Neuropathy, Hx falls, Quad weakness, CHF, Large list of medications Goals Three Impairment Pt unable to work at his job as a pump house engineer Correction Goal (LTG) Pt to score >90% on the ABC scale, demonstrating increased confidence in his balance, allowing him to return to work . Two Impairment Pt has a history of falls Core Cleaner Goal (LTG) Pt to report no falls on near LOB over a one month period LTG Duration 10/31/19 One Impairment Pt does not have an appropriate home exercise program Short Term Goal (STG) Pt to be independent and compliant with an appropriate HEP STG Duration 09/22/19 Assessment Summary Assessment Pt did very well today, but had difficulty with the various dynamic challenges. Pt especially had difficulty with head turns during ambulation. Physical Therapy Plan Frequency and Duration Frequency of Treatment 2x/Week Duration of Treatment 10 weeks Plan of Care Start Date 08/22/19 Plan of Care End Date 10/31/19 Therapeutic Interventions Therapeutic Interventions Aquatic Therapy,Balance Training,Gait Training,Home Exercise Program,Manual Therapy,Neuromuscular Re- education,Patient/Caregiver Education,Self-Care/Home Management,Soft Tissue Mobilization,Therapeutic Activities,Therapeutic Exercises Next Visit Focus/Plan Next Note Type Treatment Note Next Visit Plan Balance training, Neuromuscular Re-ed
--- NOTE | 2019-08-30 15:16 | PT.OTN ---
Current Diagnoses Type 2 diabetes mellitus without complications (08/30/19) Other abnormalities of gait and mobility (08/30/19) History of falling (08/30/19) Physical Therapy Treatment Note PT-OP-A Visit Information Start: 08/22/19 12:21 Freq: Status: Active Protocol: Document 08/30/19 14:30 DCW (Rec: 08/30/19 15:15 DCW [id number]) Out-Patient Physical Therapy Visit Information Visit Information Visit Type Treatment Note Visit Start Time 14:30 Visit Stop Time 15:15 Total Visit Minutes 45 Visit Number 3 Number of CHAIR INSPECTOR Visits 0 Evaluation Information Evaluation Date 08/22/19 PT-OP-B Current Condition Start: 08/22/19 12:21 Freq: Status: Active Protocol: Document 08/22/19 09:45 DCW (Rec: 08/22/19 12:50 DCW [id number]) Current Condition History of Current Condition Onset Date 6-7 years Current Complaints imbalance History of Current Condition Pt is a 69 year old male presenting with a long- standing history of imbalance, with a recent worsening of symptoms. Pt reports he feels wobbly and off balance when he is up moving around, denies any rotation vertigo or dizziness with position change . Pt also notes he has CHF, and is on a variety of medication that he feels messes me up. t reports difficulty when trying to sit down, often just ends up plopping into a chair, and also struggles walking down hills or stairs. 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 PT-OP-C Subjective Start: 08/22/19 12:21 Freq: Status: Active Protocol: Document 08/30/19 14:30 DCW (Rec: 08/30/19 15:15 DCW [id number]) OP-PT Subjective Patient Comments Patient Comments Pt reports that he is well today. PT-OP-D Balance Start: 08/22/19 12:21 Freq: Status: Active Protocol: Document 08/22/19 09:45 DCW (Rec: 08/22/19 12:50 DCW [id number]) OP-PT Balance Assessment Sitting Balance Static Sitting Balance Ability Normal Dynamic Sitting Balance Ability Normal Standing Balance Static Standing Balance Ability Good Dynamic Standing Balance Ability Fair Balance Tests Chun Balance Test Chun Balance Test Score 49/56 Chun Impairment Rating 1 to 19% Impaired (Score 45-55 ) mCTSIB mCTSIB Position 1 Mild Sway mCTSIB Position 2 Mild Sway mCTSIB Position 3 Mild Sway mCTSIB Position 4 Moderate Sway Chun Balance Assessment Evaluation Sitting to Standing Ability Independent w/out Hands Unsupported Stance Safely- 2 minutes Sitting Unsupported, Feet on Floor Safely- 2 minutes Standing to Sitting Ability Independent, Uncontrolled Transfer Ability Safely, Hand Use Unsupported Stance- Eyes Closed Safely, 10 seconds Unsupported Stance- Eyes Open Independent, 1 minute Reaching Forward Standing Confidently, 10 inches Pick- Up Object From Floor Independent/Safe Look Behind Shoulder - Standing Shifts Weight Well Turning 360 Degrees Turns , < 4 secs Unsupported Stance, Alternating Feet on (I)- 8 Steps in 20 secs Stair Unsupported Tandem Stance Holds Tandem- 30 seconds Unilateral Leg Stance Lifts Leg/Holds 5-10 secs Total Score Chun Total Score (out of 56 points) 49 Chun Impairment Rating 1 to 19% Impaired (Score 45-55 ) Steele Fall Scale Copyright Permission PT-OP-E Functional Tests Start: 08/22/19 12:21 Freq: Status: Active Protocol: Document 08/25/19 15:15 DCW (Rec: 08/25/19 16:13 DCW [id number]) Functional Tests 6 Minute Walk Test Distance 1136 Device Used none Timed Up and Go (TUG) Score 11.4 seconds Comments 3-trial average PT-OP-M Strength Start: 08/22/19 12:21 Freq: Status: Active Protocol: Document 08/22/19 09:45 DCW (Rec: 08/22/19 12:50 DCW [id number]) Hip Strength Hip Manual Muscle Testing Right Flexion (L2) 5 Normal Extension (S1) 4+ Good+ Abduction 5 Normal Adduction 5 Normal Left Flexion (L2) 5 Normal Extension (S1) 4+ Good+ Abduction 5 Normal Adduction 5 Normal Knee Strength Knee Manual Muscle Testing Right Flexion (S2) 5 Normal Extension (L3) 5 Normal Left Flexion (S2) 5 Normal Extension (L3) 5 Normal PT-OP-Q Treatments Start: 08/22/19 12:21 Freq: Status: Active Protocol: Document 08/30/19 14:30 DCW (Rec: 08/30/19 15:15 DCW [id number]) Gym Equipment Shuttle Recovery Unilateral Squats Resistance 62# Reps/Time Focus on Eccentric contraction Bilateral Squats Resistance 125# Reps/Time Focus on Eccentric contraction Shuttle Balance Red Details Wide SHELLEY (EO/EC), Staggered Stance, Lateral Weight Shift Therapeutic Exercises Other Exercises Resisted Ambulation Other Exercise Name Side-stepping, Fwd, Bkwd Resistance Green Equipment Used T-band Neuro Re-Education Treatment Balance Activities X1 Viewing Details X1 viewing Surface Flores foam Amb /c head turns Details Horizontal/Vertical head turns , eyes on target Surface firm Tandem Ambulation Details Tandem Ambulation PT-OP-T Assessment and Plan Start: 08/22/19 12:21 Freq: Status: Active Protocol: Document 08/30/19 14:30 DCW (Rec: 08/30/19 15:15 DCW [id number]) Physical Therapy Assessment Impairments Impairments Balance,Gait,Posture,ROM, Strength Other Concerns Barriers to Rehabilitation Neuropathy, Hx falls, Quad weakness, CHF, Large list of medications Goals Three Impairment Pt unable to work 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 Two Impairment Pt has a history of falls Senior Living Goal (LTG) Pt to report no falls on near LOB over a one month period LTG Duration 10/31/19 One Impairment Pt does not have an appropriate home exercise program Short Term Goal (STG) Pt to be independent and compliant with an appropriate HEP STG Duration 09/22/19 Assessment Summary Assessment Pt tolerating balance activities well, however he reports that he has some subjective dizziness/imbalance Physical Therapy Plan Frequency and Duration Frequency of Treatment 2x/Week Duration of Treatment 10 weeks Plan of Care Start Date 08/22/19 Plan of Care End Date 10/31/19 Therapeutic Interventions Therapeutic Interventions Aquatic Therapy,Balance Training,Gait Training,Home Exercise Program,Manual Therapy,Neuromuscular Re- education,Patient/Caregiver Education,Self-Care/Home Management,Soft Tissue Mobilization,Therapeutic Activities,Therapeutic Exercises Next Visit Focus/Plan Next Note Type Treatment Note Next Visit Plan Balance training, Neuromuscular Re-ed
--- NOTE | 2019-09-01 15:16 | PT.OTN ---
Current Diagnoses Type 2 diabetes mellitus without complications (09/01/19) Other abnormalities of gait and mobility (09/01/19) History of falling (09/01/19) Physical Therapy Treatment Note PT-OP-A Visit Information Start: 08/22/19 12:21 Freq: Status: Active Protocol: Document 09/01/19 14:30 DCW (Rec: 09/01/19 15:15 DCW [id number]) Out-Patient Physical Therapy Visit Information Visit Information Visit Type Treatment Note Visit Start Time 14:30 Visit Stop Time 15:15 Total Visit Minutes 45 Visit Number 4 Number of QA INTERNSHIP Visits 0 Evaluation Information Evaluation Date 08/22/19 PT-OP-B Current Condition Start: 08/22/19 12:21 Freq: Status: Active Protocol: Document 08/22/19 09:45 DCW (Rec: 08/22/19 12:50 DCW [id number]) Current Condition History of Current Condition Onset Date 6-7 years Current Complaints imbalance History of Current Condition Pt is a 69 year old male presenting with a long- standing history of imbalance, with a recent worsening of symptoms. Pt reports he feels wobbly and off balance when he is up moving around, denies any rotation vertigo or dizziness with position change . Pt also notes he has CHF, and is on a variety of medication that he feels messes me up. t reports difficulty when trying to sit down, often just ends up plopping into a chair, and also struggles walking down hills or stairs. 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 PT-OP-C Subjective Start: 08/22/19 12:21 Freq: Status: Active Protocol: Document 09/01/19 14:30 DCW (Rec: 09/01/19 15:15 DCW [id number]) OP-PT Subjective Patient Comments Patient Comments Pt notes his arm is sore today , but you don't have anything to do with that. PT-OP-D Balance Start: 08/22/19 12:21 Freq: Status: Active Protocol: Document 08/22/19 09:45 DCW (Rec: 08/22/19 12:50 DCW [id number]) OP-PT Balance Assessment Sitting Balance Static Sitting Balance Ability Normal Dynamic Sitting Balance Ability Normal Standing Balance Static Standing Balance Ability Good Dynamic Standing Balance Ability Fair Balance Tests Chun Balance Test Chun Balance Test Score 49/56 Chun Impairment Rating 1 to 19% Impaired (Score 45-55 ) mCTSIB mCTSIB Position 1 Mild Sway mCTSIB Position 2 Mild Sway mCTSIB Position 3 Mild Sway mCTSIB Position 4 Moderate Sway Chun Balance Assessment Evaluation Sitting to Standing Ability Independent w/out Hands Unsupported Stance Safely- 2 minutes Sitting Unsupported, Feet on Floor Safely- 2 minutes Standing to Sitting Ability Independent, Uncontrolled Transfer Ability Safely, Hand Use Unsupported Stance- Eyes Closed Safely, 10 seconds Unsupported Stance- Eyes Open Independent, 1 minute Reaching Forward Standing Confidently, 10 inches Pick- Up Object From Floor Independent/Safe Look Behind Shoulder - Standing Shifts Weight Well Turning 360 Degrees Turns , < 4 secs Unsupported Stance, Alternating Feet on (I)- 8 Steps in 20 secs Stair Unsupported Tandem Stance Holds Tandem- 30 seconds Unilateral Leg Stance Lifts Leg/Holds 5-10 secs Total Score Chun Total Score (out of 56 points) 49 Chun Impairment Rating 1 to 19% Impaired (Score 45-55 ) Steele Fall Scale Copyright Permission PT-OP-E Functional Tests Start: 08/22/19 12:21 Freq: Status: Active Protocol: Document 08/25/19 15:15 DCW (Rec: 08/25/19 16:13 DCW [id number]) Functional Tests 6 Minute Walk Test Distance 1136 Device Used none Timed Up and Go (TUG) Score 11.4 seconds Comments 3-trial average PT-OP-M Strength Start: 08/22/19 12:21 Freq: Status: Active Protocol: Document 08/22/19 09:45 DCW (Rec: 08/22/19 12:50 DCW [id number]) Hip Strength Hip Manual Muscle Testing Right Flexion (L2) 5 Normal Extension (S1) 4+ Good+ Abduction 5 Normal Adduction 5 Normal Left Flexion (L2) 5 Normal Extension (S1) 4+ Good+ Abduction 5 Normal Adduction 5 Normal Knee Strength Knee Manual Muscle Testing Right Flexion (S2) 5 Normal Extension (L3) 5 Normal Left Flexion (S2) 5 Normal Extension (L3) 5 Normal PT-OP-Q Treatments Start: 08/22/19 12:21 Freq: Status: Active Protocol: Document 09/01/19 14:30 DCW (Rec: 09/01/19 15:15 DCW [id number]) Gym Equipment Shuttle Recovery Unilateral Squats Resistance 62# Reps/Time Focus on Eccentric contraction Bilateral Squats Resistance 125# Reps/Time Focus on Eccentric contraction Shuttle Balance Red Details Wide SHELLEY (EO/EC), Staggered Stance, Lateral Weight Shift Therapeutic Exercises Other Exercises Resisted Ambulation Other Exercise Name Side-stepping, Fwd, Bkwd Resistance Green Equipment Used T-band Neuro Re-Education Treatment Balance Activities Ball/Cone transfers Details Ball/cone transfers Comments Normal SHELLEY x1, Tandem ambulation x2 Foam Stance Details EC marching Surface Flores foam PT-OP-T Assessment and Plan Start: 08/22/19 12:21 Freq: Status: Active Protocol: Document 09/01/19 14:30 DCW (Rec: 09/01/19 15:15 DCW [id number]) Physical Therapy Assessment Impairments Impairments Balance,Gait,Posture,ROM, Strength Other Concerns Barriers to Rehabilitation Neuropathy, Hx falls, Quad weakness, CHF, Large list of medications Goals Three Impairment Pt 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 Two Impairment Pt has a history of falls Detention Goal (LTG) Pt to report no falls on near LOB over a one month period LTG Duration 10/31/19 One Impairment Pt does not have an appropriate home exercise program Short Term Goal (STG) Pt to be independent and compliant with an appropriate HEP STG Duration 09/22/19 Assessment Summary Assessment Pt still complaining of some subjective imbalance, but continues to improve with his balance training. Pt does have increased difficulty with narrowing SHELLEY, especially in tandem. Physical Therapy Plan Frequency and Duration Frequency of Treatment 2x/Week Duration of Treatment 10 weeks Plan of Care Start Date 08/22/19 Plan of Care End Date 10/31/19 Therapeutic Interventions Therapeutic Interventions Aquatic Therapy,Balance Training,Gait Training,Home Exercise Program,Manual Therapy,Neuromuscular Re- education,Patient/Caregiver Education,Self-Care/Home Management,Soft Tissue Mobilization,Therapeutic Activities,Therapeutic Exercises Next Visit Focus/Plan Next Note Type Treatment Note Next Visit Plan Balance training, Neuromuscular Re-ed
--- NOTE | 2019-09-06 15:13 | PT.OTN ---
Current Diagnoses Type 2 diabetes mellitus without complications (09/06/19) Other abnormalities of gait and mobility (09/06/19) History of falling (09/06/19) Physical Therapy Treatment Note PT-OP-A Visit Information Start: 08/22/19 12:21 Freq: Status: Active Protocol: Document 09/06/19 14:30 DCW (Rec: 09/06/19 15:13 DCW [id number]) Out-Patient Physical Therapy Visit Information Visit Information Visit Type Treatment Note Visit Start Time 14:30 Visit Stop Time 15:15 Total Visit Minutes 45 Visit Number 5 Number of BLOOD AND PLASMA LABORATORY ASSISTANT Visits 0 Evaluation Information Evaluation Date 08/22/19 PT-OP-B Current Condition Start: 08/22/19 12:21 Freq: Status: Active Protocol: Document 08/22/19 09:45 DCW (Rec: 08/22/19 12:50 DCW [id number]) Current Condition History of Current Condition Onset Date 6-7 years Current Complaints imbalance History of Current Condition Pt is a 69 year old male presenting with a long- standing history of imbalance, with a recent worsening of symptoms. Pt reports he feels wobbly and off balance when he is up moving around, denies any rotation vertigo or dizziness with position change . Pt also notes he has CHF, and is on a variety of medication that he feels messes me up. t reports difficulty when trying to sit down, often just ends up plopping into a chair, and also struggles walking down hills or stairs. 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 PT-OP-C Subjective Start: 08/22/19 12:21 Freq: Status: Active Protocol: Document 09/06/19 14:30 DCW (Rec: 09/06/19 15:13 DCW [id number]) OP-PT Subjective Patient Comments Patient Comments Pt notes he still has a lot of apprehension when he is walking downhill. PT-OP-D Balance Start: 08/22/19 12:21 Freq: Status: Active Protocol: Document 08/22/19 09:45 DCW (Rec: 08/22/19 12:50 DCW [id number]) OP-PT Balance Assessment Sitting Balance Static Sitting Balance Ability Normal Dynamic Sitting Balance Ability Normal Standing Balance Static Standing Balance Ability Good Dynamic Standing Balance Ability Fair Balance Tests Chun Balance Test Chun Balance Test Score 49/56 Chun Impairment Rating 1 to 19% Impaired (Score 45-55 ) mCTSIB mCTSIB Position 1 Mild Sway mCTSIB Position 2 Mild Sway mCTSIB Position 3 Mild Sway mCTSIB Position 4 Moderate Sway Chun Balance Assessment Evaluation Sitting to Standing Ability Independent w/out Hands Unsupported Stance Safely- 2 minutes Sitting Unsupported, Feet on Floor Safely- 2 minutes Standing to Sitting Ability Independent, Uncontrolled Transfer Ability Safely, Hand Use Unsupported Stance- Eyes Closed Safely, 10 seconds Unsupported Stance- Eyes Open Independent, 1 minute Reaching Forward Standing Confidently, 10 inches Pick- Up Object From Floor Independent/Safe Look Behind Shoulder - Standing Shifts Weight Well Turning 360 Degrees Turns , < 4 secs Unsupported Stance, Alternating Feet on (I)- 8 Steps in 20 secs Stair Unsupported Tandem Stance Holds Tandem- 30 seconds Unilateral Leg Stance Lifts Leg/Holds 5-10 secs Total Score Chun Total Score (out of 56 points) 49 Chun Impairment Rating 1 to 19% Impaired (Score 45-55 ) Steele Fall Scale Copyright Permission PT-OP-E Functional Tests Start: 08/22/19 12:21 Freq: Status: Active Protocol: Document 08/25/19 15:15 DCW (Rec: 08/25/19 16:13 DCW [id number]) Functional Tests 6 Minute Walk Test Distance 1136 Device Used none Timed Up and Go (TUG) Score 11.4 seconds Comments 3-trial average PT-OP-M Strength Start: 08/22/19 12:21 Freq: Status: Active Protocol: Document 08/22/19 09:45 DCW (Rec: 08/22/19 12:50 DCW [id number]) Hip Strength Hip Manual Muscle Testing Right Flexion (L2) 5 Normal Extension (S1) 4+ Good+ Abduction 5 Normal Adduction 5 Normal Left Flexion (L2) 5 Normal Extension (S1) 4+ Good+ Abduction 5 Normal Adduction 5 Normal Knee Strength Knee Manual Muscle Testing Right Flexion (S2) 5 Normal Extension (L3) 5 Normal Left Flexion (S2) 5 Normal Extension (L3) 5 Normal PT-OP-Q Treatments Start: 08/22/19 12:21 Freq: Status: Active Protocol: Document 09/06/19 14:30 DCW (Rec: 09/06/19 15:13 DCW [id number]) Gym Equipment Shuttle Recovery Unilateral Squats Resistance 62# Reps/Time Focus on Eccentric contraction Bilateral Squats Resistance 125# Reps/Time Focus on Eccentric contraction Shuttle Balance Red Details Wide SHELLEY (EO/EC), Staggered Stance, Lateral Weight Shift Therapeutic Exercises Other Exercises Resisted Ambulation Other Exercise Name Side-stepping, Fwd, Bkwd Resistance Green Equipment Used T-band Neuro Re-Education Treatment Balance Activities Foam Stance Details EC, head turns Surface Flores foam Amb /c head turns Details 3-steps, bow, head turns Tandem Ambulation Details Tandem Ambulation PT-OP-T Assessment and Plan Start: 08/22/19 12:21 Freq: Status: Active Protocol: Document 09/06/19 14:30 DCW (Rec: 09/06/19 15:13 DCW [id number]) Physical Therapy Assessment Impairments Impairments Balance,Gait,Posture,ROM, Strength Other Concerns Barriers to Rehabilitation Neuropathy, Hx falls, Quad weakness, CHF, Large list of medications Goals Three Impairment Pt unable to work at his job as a guest house manager Inventory Checker Goal (LTG) Pt to score >90% on the ABC scale, demonstrating increased confidence in his balance, allowing him to return to work . Two Impairment Pt has a history of falls Inventory Checker Goal (LTG) Pt to report no falls on near LOB over a one month period LTG Duration 10/31/19 One Impairment Pt does not have an appropriate home exercise program Short Term Goal (STG) Pt to be independent and compliant with an appropriate HEP STG Duration 09/22/19 Assessment Summary Assessment Pt demonstrated increased difficulty with ambulation with bowing and with tandem walking today. Physical Therapy Plan Frequency and Duration Frequency of Treatment 2x/Week Duration of Treatment 10 weeks Plan of Care Start Date 08/22/19 Plan of Care End Date 10/31/19 Therapeutic Interventions Therapeutic Interventions Aquatic Therapy,Balance Training,Gait Training,Home Exercise Program,Manual Therapy,Neuromuscular Re- education,Patient/Caregiver Education,Self-Care/Home Management,Soft Tissue Mobilization,Therapeutic Activities,Therapeutic Exercises Next Visit Focus/Plan Next Note Type Treatment Note Next Visit Plan Balance training, Neuromuscular Re-ed
--- NOTE | 2019-09-08 15:14 | PT.OTN ---
Current Diagnoses Type 2 diabetes mellitus without complications (09/08/19) Other abnormalities of gait and mobility (09/08/19) History of falling (09/08/19) Physical Therapy Treatment Note PT-OP-A Visit Information Start: 08/22/19 12:21 Freq: Status: Active Protocol: Document 09/08/19 14:30 DCW (Rec: 09/08/19 15:13 DCW [id number]) Out-Patient Physical Therapy Visit Information Visit Information Visit Type Treatment Note Visit Start Time 14:30 Visit Stop Time 15:15 Total Visit Minutes 45 Visit Number 6 Number of FORM SETTER SUPERVISOR Visits 0 Evaluation Information Evaluation Date 08/22/19 PT-OP-B Current Condition Start: 08/22/19 12:21 Freq: Status: Active Protocol: Document 08/22/19 09:45 DCW (Rec: 08/22/19 12:50 DCW [id number]) Current Condition History of Current Condition Onset Date 6-7 years Current Complaints imbalance History of Current Condition Pt is a 69 year old male presenting with a long- standing history of imbalance, with a recent worsening of symptoms. Pt reports he feels wobbly and off balance when he is up moving around, denies any rotation vertigo or dizziness with position change . Pt also notes he has CHF, and is on a variety of medication that he feels messes me up. t reports difficulty when trying to sit down, often just ends up plopping into a chair, and also struggles walking down hills or stairs. 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 PT-OP-C Subjective Start: 08/22/19 12:21 Freq: Status: Active Protocol: Document 09/08/19 14:30 DCW (Rec: 09/08/19 15:13 DCW [id number]) OP-PT Subjective Patient Comments Patient Comments Pt feels like he has improved, but still has a stuffy/foggy feeling in his head that makes him feel off balance, typically upon first rising and then again later in the day. PT-OP-D Balance Start: 08/22/19 12:21 Freq: Status: Active Protocol: Document 08/22/19 09:45 DCW (Rec: 08/22/19 12:50 DCW [id number]) OP-PT Balance Assessment Sitting Balance Static Sitting Balance Ability Normal Dynamic Sitting Balance Ability Normal Standing Balance Static Standing Balance Ability Good Dynamic Standing Balance Ability Fair Balance Tests Chun Balance Test Chun Balance Test Score 49/56 Chun Impairment Rating 1 to 19% Impaired (Score 45-55 ) mCTSIB mCTSIB Position 1 Mild Sway mCTSIB Position 2 Mild Sway mCTSIB Position 3 Mild Sway mCTSIB Position 4 Moderate Sway Chun Balance Assessment Evaluation Sitting to Standing Ability Independent w/out Hands Unsupported Stance Safely- 2 minutes Sitting Unsupported, Feet on Floor Safely- 2 minutes Standing to Sitting Ability Independent, Uncontrolled Transfer Ability Safely, Hand Use Unsupported Stance- Eyes Closed Safely, 10 seconds Unsupported Stance- Eyes Open Independent, 1 minute Reaching Forward Standing Confidently, 10 inches Pick- Up Object From Floor Independent/Safe Look Behind Shoulder - Standing Shifts Weight Well Turning 360 Degrees Turns , < 4 secs Unsupported Stance, Alternating Feet on (I)- 8 Steps in 20 secs Stair Unsupported Tandem Stance Holds Tandem- 30 seconds Unilateral Leg Stance Lifts Leg/Holds 5-10 secs Total Score Chun Total Score (out of 56 points) 49 Chun Impairment Rating 1 to 19% Impaired (Score 45-55 ) Steele Fall Scale Copyright Permission PT-OP-E Functional Tests Start: 08/22/19 12:21 Freq: Status: Active Protocol: Document 08/25/19 15:15 DCW (Rec: 08/25/19 16:13 DCW [id number]) Functional Tests 6 Minute Walk Test Distance 1136 Device Used none Timed Up and Go (TUG) Score 11.4 seconds Comments 3-trial average PT-OP-M Strength Start: 08/22/19 12:21 Freq: Status: Active Protocol: Document 08/22/19 09:45 DCW (Rec: 08/22/19 12:50 DCW [id number]) Hip Strength Hip Manual Muscle Testing Right Flexion (L2) 5 Normal Extension (S1) 4+ Good+ Abduction 5 Normal Adduction 5 Normal Left Flexion (L2) 5 Normal Extension (S1) 4+ Good+ Abduction 5 Normal Adduction 5 Normal Knee Strength Knee Manual Muscle Testing Right Flexion (S2) 5 Normal Extension (L3) 5 Normal Left Flexion (S2) 5 Normal Extension (L3) 5 Normal PT-OP-Q Treatments Start: 08/22/19 12:21 Freq: Status: Active Protocol: Document 09/08/19 14:30 DCW (Rec: 09/08/19 15:13 DCW [id number]) Gym Equipment Shuttle Recovery Unilateral Squats Resistance 62# Reps/Time Focus on Eccentric contraction Bilateral Squats Resistance 125# Reps/Time Focus on Eccentric contraction Shuttle Balance Red Details Wide SHELLEY (EO/EC), Staggered Stance, Lateral Weight Shift Therapeutic Exercises Other Exercises Resisted Ambulation Other Exercise Name Side-stepping, Fwd, Bkwd Resistance Green Equipment Used T-band Neuro Re-Education Treatment Balance Activities Foam Stance Details SLS Surface Flores foam Tandem Ambulation Details Tandem Ambulation Comments Head turns PT-OP-T Assessment and Plan Start: 08/22/19 12:21 Freq: Status: Active Protocol: Document 09/08/19 14:30 DCW (Rec: 09/08/19 15:13 DCW [id number]) Physical Therapy Assessment Impairments Impairments Balance,Gait,Posture,ROM, Strength Other Concerns Barriers to Rehabilitation Neuropathy, Hx falls, Quad weakness, CHF, Large list of medications Goals Three Impairment 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 Two Impairment Pt has a history of falls Ergonomics Technician Goal (LTG) Pt to report no falls on near LOB over a one month period LTG Duration 10/31/19 One Impairment Pt does not have an appropriate home exercise program Short Term Goal (STG) Pt to be independent and compliant with an appropriate HEP STG Duration 09/22/19 Assessment Summary Assessment Pt and therapist feel pt has made good progress, however he has not yet reached his potential, and are agreeable to more scheduled visits. Pt continues to have difficulty with dynamic balance with a decreased SHELLEY. Physical Therapy Plan Frequency and Duration Frequency of Treatment 2x/Week Duration of Treatment 10 weeks Plan of Care Start Date 08/22/19 Plan of Care End Date 10/31/19 Therapeutic Interventions Therapeutic Interventions Aquatic Therapy,Balance Training,Gait Training,Home Exercise Program,Manual Therapy,Neuromuscular Re- education,Patient/Caregiver Education,Self-Care/Home Management,Soft Tissue Mobilization,Therapeutic Activities,Therapeutic Exercises Next Visit Focus/Plan Next Note Type Treatment Note Next Visit Plan Balance training, Neuromuscular Re-ed
--- NOTE | 2019-09-12 12:49 | PT.OTN ---
Current Diagnoses Type 2 diabetes mellitus without complications (09/12/19) Other abnormalities of gait and mobility (09/12/19) History of falling (09/12/19) Physical Therapy Treatment Note PT-OP-A Visit Information Start: 08/22/19 12:21 Freq: Status: Active Protocol: Document 09/12/19 12:00 DCW (Rec: 09/12/19 12:49 DCW [id number]) Out-Patient Physical Therapy Visit Information Visit Information Visit Type Treatment Note Visit Start Time 12:00 Visit Stop Time 12:45 Total Visit Minutes 45 Visit Number 7 Number of DISASTER DIRECTOR Visits 0 Evaluation Information Evaluation Date 08/22/19 PT-OP-B Current Condition Start: 08/22/19 12:21 Freq: Status: Active Protocol: Document 08/22/19 09:45 DCW (Rec: 08/22/19 12:50 DCW [id number]) Current Condition History of Current Condition Onset Date 6-7 years Current Complaints imbalance History of Current Condition Pt is a 69 year old male presenting with a long- standing history of imbalance, with a recent worsening of symptoms. Pt reports he feels wobbly and off balance when he is up moving around, denies any rotation vertigo or dizziness with position change . Pt also notes he has CHF, and is on a variety of medication that he feels messes me up. t reports difficulty when trying to sit down, often just ends up plopping into a chair, and also struggles walking down hills or stairs. 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 PT-OP-C Subjective Start: 08/22/19 12:21 Freq: Status: Active Protocol: Document 09/12/19 12:00 DCW (Rec: 09/12/19 12:49 DCW [id number]) OP-PT Subjective Patient Comments Patient Comments Pt feels pretty tired, but that's been a problem for a number of years for me. PT-OP-D Balance Start: 08/22/19 12:21 Freq: Status: Active Protocol: Document 08/22/19 09:45 DCW (Rec: 08/22/19 12:50 DCW [id number]) OP-PT Balance Assessment Sitting Balance Static Sitting Balance Ability Normal Dynamic Sitting Balance Ability Normal Standing Balance Static Standing Balance Ability Good Dynamic Standing Balance Ability Fair Balance Tests Chun Balance Test Chun Balance Test Score 49/56 Chun Impairment Rating 1 to 19% Impaired (Score 45-55 ) mCTSIB mCTSIB Position 1 Mild Sway mCTSIB Position 2 Mild Sway mCTSIB Position 3 Mild Sway mCTSIB Position 4 Moderate Sway Chun Balance Assessment Evaluation Sitting to Standing Ability Independent w/out Hands Unsupported Stance Safely- 2 minutes Sitting Unsupported, Feet on Floor Safely- 2 minutes Standing to Sitting Ability Independent, Uncontrolled Transfer Ability Safely, Hand Use Unsupported Stance- Eyes Closed Safely, 10 seconds Unsupported Stance- Eyes Open Independent, 1 minute Reaching Forward Standing Confidently, 10 inches Pick- Up Object From Floor Independent/Safe Look Behind Shoulder - Standing Shifts Weight Well Turning 360 Degrees Turns , < 4 secs Unsupported Stance, Alternating Feet on (I)- 8 Steps in 20 secs Stair Unsupported Tandem Stance Holds Tandem- 30 seconds Unilateral Leg Stance Lifts Leg/Holds 5-10 secs Total Score Chun Total Score (out of 56 points) 49 Chun Impairment Rating 1 to 19% Impaired (Score 45-55 ) Steele Fall Scale Copyright Permission PT-OP-E Functional Tests Start: 08/22/19 12:21 Freq: Status: Active Protocol: Document 08/25/19 15:15 DCW (Rec: 08/25/19 16:13 DCW [id number]) Functional Tests 6 Minute Walk Test Distance 1136 Device Used none Timed Up and Go (TUG) Score 11.4 seconds Comments 3-trial average PT-OP-M Strength Start: 08/22/19 12:21 Freq: Status: Active Protocol: Document 08/22/19 09:45 DCW (Rec: 08/22/19 12:50 DCW [id number]) Hip Strength Hip Manual Muscle Testing Right Flexion (L2) 5 Normal Extension (S1) 4+ Good+ Abduction 5 Normal Adduction 5 Normal Left Flexion (L2) 5 Normal Extension (S1) 4+ Good+ Abduction 5 Normal Adduction 5 Normal Knee Strength Knee Manual Muscle Testing Right Flexion (S2) 5 Normal Extension (L3) 5 Normal Left Flexion (S2) 5 Normal Extension (L3) 5 Normal PT-OP-Q Treatments Start: 08/22/19 12:21 Freq: Status: Active Protocol: Document 09/12/19 12:00 DCW (Rec: 09/12/19 12:49 DCW [id number]) Gym Equipment Shuttle Recovery Unilateral Squats Resistance 62# Reps/Time Focus on Eccentric contraction Bilateral Squats Resistance 125# Reps/Time Focus on Eccentric contraction Shuttle Balance Red Details Wide SHELLEY (EO/EC), Staggered Stance, Lateral Weight Shift Therapeutic Exercises Other Exercises Step-downs Other Exercise Name Step-downs Side bilateral Equipment Used 6 stairs Resisted Ambulation Other Exercise Name Side-stepping, Fwd, Bkwd Resistance Green Equipment Used T-band Neuro Re-Education Treatment Balance Activities Lunge Details Lunges onto BOSU Surface Blue BOSU Amb /c head turns Details 3-steps, bow, head turns PT-OP-T Assessment and Plan Start: 08/22/19 12:21 Freq: Status: Active Protocol: Document 09/12/19 12:00 DCW (Rec: 09/12/19 12:49 DCW [id number]) Physical Therapy Assessment Impairments Impairments Balance,Gait,Posture,ROM, Strength Other Concerns Barriers to Rehabilitation Neuropathy, Hx falls, Quad weakness, CHF, Large list of medications Goals Three Impairment 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 LTG Duration 10/31/19 Two Impairment Pt has a history of falls Engineering Technology Instructor Goal (LTG) Pt to report no falls on near LOB over a one month period LTG Duration 10/31/19 One Impairment Pt does not have an appropriate home exercise program Short Term Goal (STG) Pt to be independent and compliant with an appropriate HEP STG Duration 09/22/19 Assessment Summary Assessment Pt struggled today with more advanced balance challenges, working hard on improving stability, mainly dynamic with decreased SHELLEY. Physical Therapy Plan Frequency and Duration Frequency of Treatment 2x/Week Duration of Treatment 10 weeks Plan of Care Start Date 08/22/19 Plan of Care End Date 10/31/19 Therapeutic Interventions Therapeutic Interventions Aquatic Therapy,Balance Training,Gait Training,Home Exercise Program,Manual Therapy,Neuromuscular Re- education,Patient/Caregiver Education,Self-Care/Home Management,Soft Tissue Mobilization,Therapeutic Activities,Therapeutic Exercises Next Visit Focus/Plan Next Note Type Treatment Note Next Visit Plan Balance training, Neuromuscular Re-ed
--- NOTE | 2019-09-20 16:48 | PT.OTN ---
Current Diagnoses Type 2 diabetes mellitus without complications (09/20/19) Other abnormalities of gait and mobility (09/20/19) History of falling (09/20/19) Physical Therapy Treatment Note PT-OP-A Visit Information Start: 08/22/19 12:21 Freq: Status: Active Protocol: Document 09/20/19 16:00 DCW (Rec: 09/20/19 16:48 DCW [id number]) Out-Patient Physical Therapy Visit Information Visit Information Visit Type Treatment Note Visit Start Time 16:00 Visit Stop Time 16:45 Total Visit Minutes 45 Visit Number 8 Number of [employer]ER Visits 0 Evaluation Information Evaluation Date 08/22/19 PT-OP-B Current Condition Start: 08/22/19 12:21 Freq: Status: Active Protocol: Document 08/22/19 09:45 DCW (Rec: 08/22/19 12:50 DCW [id number]) Current Condition History of Current Condition Onset Date 6-7 years Current Complaints imbalance History of Current Condition Pt is a 69 year old male presenting with a long- standing history of imbalance, with a recent worsening of symptoms. Pt reports he feels wobbly and off balance when he is up moving around, denies any rotation vertigo or dizziness with position change . Pt also notes he has CHF, and is on a variety of medication that he feels messes me up. t reports difficulty when trying to sit down, often just ends up plopping into a chair, and also struggles walking down hills or stairs. 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 PT-OP-C Subjective Start: 08/22/19 12:21 Freq: Status: Active Protocol: Document 09/20/19 16:00 DCW (Rec: 09/20/19 16:48 DCW [id number]) OP-PT Subjective Patient Comments Patient Comments Pt reports that his legs don't feel much different, but they've b een this way for the past seven years. Pt does admit that he feels his endurance has improved. PT-OP-D Balance Start: 08/22/19 12:21 Freq: Status: Active Protocol: Document 08/22/19 09:45 DCW (Rec: 08/22/19 12:50 DCW [id number]) OP-PT Balance Assessment Sitting Balance Static Sitting Balance Ability Normal Dynamic Sitting Balance Ability Normal Standing Balance Static Standing Balance Ability Good Dynamic Standing Balance Ability Fair Balance Tests Chun Balance Test Chun Balance Test Score 49/56 Chun Impairment Rating 1 to 19% Impaired (Score 45-55 ) mCTSIB mCTSIB Position 1 Mild Sway mCTSIB Position 2 Mild Sway mCTSIB Position 3 Mild Sway mCTSIB Position 4 Moderate Sway Chun Balance Assessment Evaluation Sitting to Standing Ability Independent w/out Hands Unsupported Stance Safely- 2 minutes Sitting Unsupported, Feet on Floor Safely- 2 minutes Standing to Sitting Ability Independent, Uncontrolled Transfer Ability Safely, Hand Use Unsupported Stance- Eyes Closed Safely, 10 seconds Unsupported Stance- Eyes Open Independent, 1 minute Reaching Forward Standing Confidently, 10 inches Pick- Up Object From Floor Independent/Safe Look Behind Shoulder - Standing Shifts Weight Well Turning 360 Degrees Turns , < 4 secs Unsupported Stance, Alternating Feet on (I)- 8 Steps in 20 secs Stair Unsupported Tandem Stance Holds Tandem- 30 seconds Unilateral Leg Stance Lifts Leg/Holds 5-10 secs Total Score Chun Total Score (out of 56 points) 49 Chun Impairment Rating 1 to 19% Impaired (Score 45-55 ) Steele Fall Scale Copyright Permission PT-OP-E Functional Tests Start: 08/22/19 12:21 Freq: Status: Active Protocol: Document 08/25/19 15:15 DCW (Rec: 08/25/19 16:13 DCW [id number]) Functional Tests 6 Minute Walk Test Distance 1136 Device Used none Timed Up and Go (TUG) Score 11.4 seconds Comments 3-trial average PT-OP-M Strength Start: 08/22/19 12:21 Freq: Status: Active Protocol: Document 08/22/19 09:45 DCW (Rec: 08/22/19 12:50 DCW [id number]) Hip Strength Hip Manual Muscle Testing Right Flexion (L2) 5 Normal Extension (S1) 4+ Good+ Abduction 5 Normal Adduction 5 Normal Left Flexion (L2) 5 Normal Extension (S1) 4+ Good+ Abduction 5 Normal Adduction 5 Normal Knee Strength Knee Manual Muscle Testing Right Flexion (S2) 5 Normal Extension (L3) 5 Normal Left Flexion (S2) 5 Normal Extension (L3) 5 Normal PT-OP-Q Treatments Start: 08/22/19 12:21 Freq: Status: Active Protocol: Document 09/20/19 16:00 DCW (Rec: 09/20/19 16:48 DCW [id number]) Gym Equipment Shuttle Recovery Unilateral Squats Resistance 75# Reps/Time Focus on Eccentric contraction Bilateral Squats Resistance 125# Reps/Time Focus on Eccentric contraction Shuttle Balance Red Details Wide SHELLEY (EO/EC), Staggered Stance, Lateral Weight Shift Therapeutic Exercises Other Exercises Step-downs Other Exercise Name Step-downs Side bilateral Equipment Used 6 stairs Resisted Ambulation Other Exercise Name Side-stepping, Fwd, Bkwd Resistance Green Equipment Used T-band Neuro Re-Education Treatment Balance Activities Lunge Details Lunges onto BOSU Surface Blue BOSU Amb /c head turns Details 3-steps, bow, head turns Tandem Ambulation Details Tandem Ambulation Comments Head turns PT-OP-T Assessment and Plan Start: 08/22/19 12:21 Freq: Status: Active Protocol: Document 09/20/19 16:00 DCW (Rec: 09/20/19 16:48 DCW [id number]) Physical Therapy Assessment Impairments Impairments Balance,Gait,Posture,ROM, Strength Other Concerns Barriers to Rehabilitation Neuropathy, Hx falls, Quad weakness, CHF, Large list of medications Goals Three Impairment Pt unable to work at 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 LTG Duration 10/31/19 Two Impairment Pt has a history of falls Slurry Man Goal (LTG) Pt to report no falls on near LOB over a one month period LTG Duration 10/31/19 One Impairment Pt does not have an appropriate home exercise program Short Term Goal (STG) Pt to be independent and compliant with an appropriate HEP STG Duration 09/22/19 Assessment Summary Assessment Pt had a bit more trouble today with his dynamic balance , focused on tandem ambulation and head movement. Physical Therapy Plan Frequency and Duration Frequency of Treatment 2x/Week Duration of Treatment 10 weeks Plan of Care Start Date 08/22/19 Plan of Care End Date 10/31/19 Therapeutic Interventions Therapeutic Interventions Aquatic Therapy,Balance Training,Gait Training,Home Exercise Program,Manual Therapy,Neuromuscular Re- education,Patient/Caregiver Education,Self-Care/Home Management,Soft Tissue Mobilization,Therapeutic Activities,Therapeutic Exercises Next Visit Focus/Plan Next Note Type Treatment Note Next Visit Plan Balance training, Neuromuscular Re-ed
--- NOTE | 2019-11-03 15:08 | PT.OTN ---
Current Diagnoses Type 2 diabetes mellitus without complications (11/03/19) Other abnormalities of gait and mobility (11/03/19) History of falling (11/03/19) Physical Therapy Treatment Note PT-OP-A Visit Information Start: 08/22/19 12:21 Freq: Status: Active Protocol: Document 11/03/19 14:30 DCW (Rec: 11/03/19 15:08 DCW [id number]) Out-Patient Physical Therapy Visit Information Visit Information Visit Type Progress Note Visit Start Time 14:30 Visit Stop Time 15:00 Total Visit Minutes 30 Visit Number 9 Number of ELEMENT BURNER Visits 0 Evaluation Information Evaluation Date 08/22/19 PT-OP-B Current Condition Start: 08/22/19 12:21 Freq: Status: Active Protocol: Document 08/22/19 09:45 DCW (Rec: 08/22/19 12:50 DCW [id number]) Current Condition History of Current Condition Onset Date 6-7 years Current Complaints imbalance History of Current Condition Pt is a 69 year old male presenting with a long- standing history of imbalance, with a recent worsening of symptoms. Pt reports he feels wobbly and off balance when he is up moving around, denies any rotation vertigo or dizziness with position change . Pt also notes he has CHF, and is on a variety of medication that he feels messes me up. t reports difficulty when trying to sit down, often just ends up plopping into a chair, and also struggles walking down hills or stairs. 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 PT-OP-C Subjective Start: 08/22/19 12:21 Freq: Status: Active Protocol: Document 11/03/19 14:30 DCW (Rec: 11/03/19 15:08 DCW [id number]) OP-PT Subjective Patient Comments Patient Comments Pt has been down with the flu the last three weeks, and feels like he has been a little weak since then, but overall feels better. PT-OP-D Balance Start: 08/22/19 12:21 Freq: Status: Active Protocol: Document 11/03/19 14:30 DCW (Rec: 11/03/19 14:55 DCW [id number]) Balance Tests Chun Balance Test Chun Balance Test Score 54/56 Chun Impairment Rating 1 to 19% Impaired (Score 45-55 ) Chun Balance Assessment Evaluation Sitting to Standing Ability Independent w/out Hands Unsupported Stance Safely- 2 minutes Sitting Unsupported, Feet on Floor Safely- 2 minutes Standing to Sitting Ability Safely, Minimal Hand Use Transfer Ability Safely, Minimal Hand Use Unsupported Stance- Eyes Closed Safely, 10 seconds Unsupported Stance- Eyes Open Independent, 1 minute Reaching Forward Standing Confidently, 10 inches Pick- Up Object From Floor Independent/Safe Look Behind Shoulder - Standing Shifts Weight Well Turning 360 Degrees Turns Bilateral, < 4 secs Unsupported Stance, Alternating Feet on (I)- 8 Steps in 20 secs Stair Unsupported Tandem Stance Holds Tandem- 30 seconds Unilateral Leg Stance Lifts Leg/Holds 5-10 secs Total Score Chun Total Score (out of 56 points) 54 PT-OP-E Functional Tests Start: 08/22/19 12:21 Freq: Status: Active Protocol: Document 11/03/19 14:30 DCW (Rec: 11/03/19 14:55 DCW [id number]) Functional Tests Dynamic Gait Index (DGI) Score 21/24 DGI Impairment Rating 1 to <20% Impaired (Score 20- 23) Functional Gait Assessment Score 24/30 Functional Gait Assessment Impairment 20 to <40% Impaired (Score 19- Rating 24) Timed Up and Go (TUG) Score 11.5 Comments 3-trial average PT-OP-M Strength Start: 08/22/19 12:21 Freq: Status: Active Protocol: Document 11/03/19 14:30 DCW (Rec: 11/03/19 14:55 DCW [id number]) Hip Strength Hip Manual Muscle Testing Right Flexion (L2) 5 Normal Extension (S1) 5 Normal Abduction 5 Normal Adduction 5 Normal Left Flexion (L2) 5 Normal Extension (S1) 5 Normal Abduction 5 Normal Adduction 5 Normal Knee Strength Knee Manual Muscle Testing Right Flexion (S2) 5 Normal Extension (L3) 5 Normal Left Flexion (S2) 5 Normal Extension (L3) 5 Normal PT-OP-Q Treatments Start: 08/22/19 12:21 Freq: Status: Active Protocol: Document 11/03/19 14:30 DCW (Rec: 11/03/19 15:08 DCW [id number]) Neuro Re-Education Treatment Other Activities Testing Comments Chun, DGI, FGA, MMT PT-OP-T Assessment and Plan Start: 08/22/19 12:21 Freq: Status: Active Protocol: Document 11/03/19 14:30 DCW (Rec: 11/03/19 15:08 DCW [id number]) Physical Therapy Assessment Impairments Impairments Balance,Gait,Posture,ROM, Strength Other Concerns Barriers to Rehabilitation Neuropathy, Hx falls, Quad weakness, CHF, Large list of medications Goals Three Impairment 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 LTG Duration 10/31/19 Two Impairment Pt has a history of falls Mcc Goal (LTG) Pt to report no falls on near LOB over a one month period LTG Duration Met One Impairment Pt does not have an appropriate home exercise program Short Term Goal (STG) Pt to be independent and compliant with an appropriate HEP STG Duration Met Assessment Summary Assessment Pt doing very well, met functional goals and no longer presents as a falls risk. Pt feels comfortable with his HEP , and feels discharge is appropriate at this time. Physical Therapy Plan Frequency and Duration Duration of Treatment 1 day Plan of Care Start Date 11/03/19 Plan of Care End Date 11/04/19 Therapeutic Interventions Therapeutic Interventions Aquatic Therapy,Balance Training,Gait Training,Home Exercise Program,Manual Therapy,Neuromuscular Re- education,Patient/Caregiver Education,Self-Care/Home Management,Soft Tissue Mobilization,Therapeutic Activities,Therapeutic Exercises Discharge Physical Therapy Discharge Reasons Goals Met Next Visit Focus/Plan Next Note Type Discharge Summary
== END 2019-11-03 15:30 ==
LOC: PHYS 14:30
PROVIDERS: PCP Student in an Organized Health Care Education/Training Program; Visit Provider Student in an Organized Health Care Education/Training Program
DX: R26.89 Other abnormalities of gait and mobility (principal); E11.9 Type 2 diabetes mellitus without complications; Z91.81 History of falling
CPT/HCPCS: 97110; 97112; 97162

== ENCOUNTER → 2020-07-04 09:21 | Outpatient (CLI) | payer MEDICARE, MEDICAID, SELFPAY ==
[2020-07-04 10:45] LABS: Hemoglobin A1C% w Est Avg Glu 6.8 % (4.0-6.0)
[2020-07-04 11:01] LABS: BUN Creatinine Ratio 28.4 (6-22); Blood Urea Nitrogen 25 mg/dL (9-20); Calcium 8.4 mg/dL (8.4-10.2); Carbon Dioxide 26 mmol/L (22-32); Chloride 104 mmol/L (98-107); Estimated Glomerular Filt Rate > 60.0 mL/min (>60); Glucose 142 mg/dL (80-110); HEMOLYSIS < 15 (0-50); Potassium 4.7 mmol/L (3.4-5.1); Sodium 138 mmol/L (137-145)
[2020-07-04 11:14] LABS: Vitamin D 25 Hydroxy (D3) 22.5 ng/mL (30.0-100.0)
== END ==
PROVIDERS: PCP Student in an Organized Health Care Education/Training Program; Referring Provider Student in an Organized Health Care Education/Training Program; Visit Provider Student in an Organized Health Care Education/Training Program
DX: E11.9 Type 2 diabetes mellitus without complications (principal); E55.9 Vitamin D deficiency, unspecified; Z12.5 Encounter for screening for malignant neoplasm of prostate
CPT/HCPCS: 36415; 80048; 82306; 83036; G0103

== ENCOUNTER → 2020-09-03 07:09 | Outpatient (CLI) | payer MEDICARE, MEDICAID, SELFPAY ==
[2020-09-03 08:30] LABS: BUN Creatinine Ratio 23.1 (6-22); Blood Urea Nitrogen 24 mg/dL (9-20); Calcium 9.1 mg/dL (8.4-10.2); Carbon Dioxide 29 mmol/L (22-32); Chloride 103 mmol/L (98-107); Estimated Glomerular Filt Rate > 60.0 mL/min (>60); Glucose 153 mg/dL (80-110); HEMOLYSIS < 15 (0-50); Potassium 4.8 mmol/L (3.4-5.1); Sodium 138 mmol/L (137-145)
== END ==
PROVIDERS: PCP Student in an Organized Health Care Education/Training Program; Referring Provider Student in an Organized Health Care Education/Training Program; Visit Provider Student in an Organized Health Care Education/Training Program
DX: E55.9 Vitamin D deficiency, unspecified (principal); E11.9 Type 2 diabetes mellitus without complications; N17.9 Acute kidney failure, unspecified
CPT/HCPCS: 36415; 80048

== ENCOUNTER → 2020-11-22 13:20 | Outpatient (CLI) | payer MEDICARE, MEDICAID, SELFPAY ==
[2020-10-07 11:36] VITALS: BMI 27.0
[2020-11-22 14:12] LABS: COVID19 -Nasal RAPID Negative (Negative)
[2020-12-27 13:21] LABS: Hemoglobin A1C% w Est Avg Glu 6.9 % (4.0-6.0)
[2021-01-01 19:49] LABS: Vitamin D 25 Hydroxy (D3) 33.1 ng/mL (30.0-100.0)
== END ==
PROVIDERS: PCP Student in an Organized Health Care Education/Training Program; Visit Provider Family Medicine Sleep Medicine
DX: Z20.822 Contact with and (suspected) exposure to COVID-19 (principal); E11.9 Type 2 diabetes mellitus without complications; E55.9 Vitamin D deficiency, unspecified
CPT/HCPCS: 36415; 82306; 83036; 87635; C9803

== ENCOUNTER 2021-02-21 14:26 | Emergency (ER) | payer MEDICARE, MEDICAID, SELFPAY ==
[2020-10-07 11:36] VITALS: BMI 27.0
[2021-02-21] VITALS (50 sets, daily range): BP systolic 113–167; BP diastolic 63–94; PULSE 67–82; RESP 9–38; TEMP 36.6; O2SAT 93–100; BMI 26.8
--- NOTE | 2021-02-21 14:37 | DI.CT.S_ITS ---
PROCEDURE: CT CERVICAL SPINE WO CON INDICATIONS: fall +LOC TECHNIQUE: Noncontrast 3 mm thick sections acquired from the skull base to the T4 level. Sagittal and coronal reformats were then constructed. For radiation dose reduction, the following was used: automated exposure control, adjustment of mA and/or kV according to patient size. COMPARISON: [facility], CT, CT HEAD/BRAIN WO CON, 02/21/2021, 14:39. [facility], CR, CHEST 2VW, 05/31/2013, 7:28. FINDINGS: Image quality: Excellent. Bones: No fractures or dislocations. Visualized superior ribs are intact. There is moderate to severe disc space narrowing seen at C5-C6, with associated endplate irregularity and sclerosis. Bridging anterior osteophytes are seen and there are mild posteriorly directed endplate osteophytes at this level. At C6-C7, there is moderate loss of disc height. Minimal anterolisthesis is seen at this level. Bridging anterior osteophytes are seen. Mild post erected endplate osteophytes are seen. Focal degenerative change is seen involving the C1-C2 interface anteriorly. Milder degenerative changes are seen elsewhere. Soft tissues: Prevertebral soft tissues are normal in thickness. No paravertebral hematomas. No apical pneumothoraces. AICD leads are seen. IMPRESSION: No fractures are seen. Cervical spine degenerative changes are seen, which are most prominent inferiorly. AICD leads are partially seen. Dictated by: Danis Solomon M.D. on 02/21/2021 at 13:54 Approved by: Danis Solomon M.D. on 02/21/2021 at 13:56
--- NOTE | 2021-02-21 14:42 | DI.CT.S_ITS ---
PROCEDURE: CT HEAD/BRAIN WO CON INDICATIONS: fall TECHNIQUE: Noncontrast 4.5 mm thick angled axial sections acquired from the foramen magnum to the vertex, with coronal and sagittal reformats. For radiation dose reduction, the following was used: automated exposure control, adjustment of mA and/or kV according to patient size. COMPARISON: [facility], CT, HEAD WITHOUT CONTRAST, 06/10/2017, 22:02. FINDINGS: Image quality: Excellent. CSF spaces: Basal cisterns are patent. There is a small amount of anterior midline subarachnoid hemorrhage. The ventricles are symmetric in size and shape. Brain: No intracranial bleeds or masses. There is cerebral volume loss for age, with resultant ventricular and sulcal prominence. There are periventricular and deep white matter chronic small vessel ischemic changes. There is intracranial internal carotid artery atherosclerosis. Skull and face: Calvarium and visualized facial bones appear intact, without suspicious lesions. Sinuses: Visualized sinuses and mastoids are clear. IMPRESSION: 1. Small subarachnoid hemorrhage anteriorly. Consider post-traumatic versus secondary to aneurysmal rupture. 2. Age-related volume loss and small vessel ischemic change. Comment: It is noted that the patient is scheduled to undergo a CT angiogram. Comment: Findings were discussed with Dr. Marie for Dr. Bains at the time of study dictation on 02/21/2021 at 1457 hours. Dictated by: Onur Moreno M.D. on 02/21/2021 at 14:50 Approved by: Onur Moreno M.D. on 02/21/2021 at 14:57
--- NOTE | 2021-02-21 14:43 | DI.CT.S_ITS ---
PROCEDURE: CT ANGIO HEAD AND NECK INDICATIONS: passed out, can't walk on coumadin TECHNIQUE: After the administration of intravenous contrast, 1 mm thick sections acquired from the aortic arch through the [place]. Post-contrast 4.5 mm thick sections then re-acquired from the foramen magnum to the vertex. 3-dimensional tvmfqji-zbupepznx-hwcxlinrpt (MIP) and/or volume rendering reformats were acquired of the central intracranial vasculature and neck separately. COMPARISON: [facility], CT, CT HEAD[facility]IN WO [facility], 02/21/2021, 14:39. FINDINGS: Image quality: Excellent. BRAIN: CSF spaces: Ventricles are normal in size and shape. Basal cisterns are patent. Midline anterior subarachnoid hemorrhage is identified in the frontal region. It is not significantly changed. Brain: No midline shift. No intracranial bleeds or masses. Chang-white matter interface appears intact. Age-related volume loss and small vessel ischemic change. Skull and face: Calvarium and facial bones appear intact, without suspicious lesions. Orbits appear normal. Sinuses: Sinuses and mastoids are clear. HEAD CT ANGIOGRAPHY: Anterior circulation: Intracranial internal carotid arteries are normal in size and flow. The flow within the paired anterior cerebral arteries is normal and symmetric. The flow within the middle cerebral arteries is normal and symmetric. The anterior communicating artery is seen. No aneurysms are seen. Posterior circulation: Visualized portions of the vertebral arteries demonstrate normal caliber, and join to form a normal appearing basilar artery. Flow within the posterior cerebral arteries is normal and symmetric. No aneurysms are seen. NECK CT ANGIOGRAPHY: Carotid system: The great vessels demonstrate a conventional anatomy as they arise from the aortic arch. The origins of the common carotid arteries appear patent. The common carotid arteries demonstrate normal caliber and courses. There is a less than 50% stenosis of the origin of the left internal carotid artery. The right internal carotid artery is patent. No dissections. Posterior circulation: The origins of the vertebral arteries both appear widely patent. The more superior extracranial portions of both vertebral arteries also demonstrate normal courses and calibers. The distal aspect of the left vertebral artery is mildly diminutive. The right vertebral artery is somewhat dominant. They join to form a normal appearing basilar artery. Soft tissues: Visualized neck soft tissues demonstrate no suspicious abnormalities. Advanced coronary artery calcifications. Pacemaker. Left arm injection with extensive collaterals in the chest wall and neck, indicating left brachiocephalic stenosis or occlusion. Bones: No suspicious bony lesions. Visualized cervical spine appears normally aligned. IMPRESSION: 1. Acute anterior subarachnoid hemorrhage. 2. No underlying aneurysm identified. 3. Age-related volume loss and small vessel ischemic change. 4. No evidence acute stroke or mass. 5. Unremarkable CTA head. No aneurysm, stenosis, occlusion, or filling defect. 6. Less than 50% origin of left internal carotid artery stenosis. 7. Advanced coronary artery disease. 8. 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 Comment: Findings were discussed with Dr. Bains on 02/21/2021 at 1514 hours Any quantitative measurements of stenosis were performed using NASCET criteria. Dictated by: Onur Moreno M.D. on 02/21/2021 at 15:03 Approved by: Onur Moreno M.D. on 02/21/2021 at 15:16
--- NOTE | 2021-02-21 14:46 | ED_ITS ---
HPI - Fall General Chief Complaint: Fall Stated Complaint: walk woobly, right ear ring, slurred speech Time Seen by Provider: 02/21/21 14:37 Source: patient History of Present Illness HPI Narrative: Patient is a 71-year-old male with history of cardiomyopathy possibly atrial fibrillation on Coumadin is presenting after ground level fall. He actually states that he woke up around 8 or 830 this morning and he did not feel quite right. He was making open meal when he fell to the ground. He likely had and he loss of consciousness he is unsure how long. When he woke up worse he was able to stand up he tried going down the stairs he said he was bouncing off the christina going down the stairs. His dizziness was feeling significantly worse he felt like he was very unsteady. He tried to walk to [employer] but was really unable to. He also feels like his tongue is big and he is having difficulty speaking. Finally a friend brought him to the emergency department for further evaluation. Related Data Home Medications Medication Instructions Recorded Confirmed warfarin 1 tab PO SUTUTHSA 08/26/18 02/21/21 warfarin 2.5 mg PO MOWE 08/26/18 02/21/21 aspirin 81 mg tablet,delayed 81 mg PO DAILY 08/08/19 02/21/21 release carvedilol 6.25 mg tablet 6.25 mg PO BIDWM tab 08/12/19 02/21/21 amlodipine 5 mg tablet 5 mg PO DAILY 11/20/20 02/21/21 fluorouracil 5 % topical cream 1 applic TOPICAL BID 11/20/20 02/21/21 rosuvastatin 5 mg tablet 5 mg PO BEDTIME tab 11/20/20 02/21/21 sacubitril 49 mg-valsartan 51 mg 1 tab PO BID 11/20/20 02/21/21 tablet Previous Rx's Medication Instructions Recorded GLUCOCARD EXPRESSION LANCETS #1 ea 08/02/19 GLUCOCARD EXPRESSION TEST STRIPS #100 each 05/29/20 gabapentin 600 mg tablet 600 mg PO BID #180 tab 08/05/20 metformin 1,000 mg tablet 1,000 mg PO BID #180 tab 01/29/21 Allergies Allergy/AdvReac Type Severity Reaction Status Date / Time No Known Drug Allergies Allergy Verified 08/27/20 09:58 Review of Systems Review of Systems ROS Unobtainable: All systems reviewed & are unremarkable except as noted in HPI and below Constitutional Constitutional: Denies chills, Denies fever(s), Reports headache(s), Denies lethargy and Denies weakness Eyes Eyes: Denies loss of vision ENT Ears, Nose, Mouth, and Throat: Denies change in voice, Reports vertigo, Reports dizziness, Reports headache(s), Denies neck pain and Denies sore throat Cardiovascular Cardiovascular: Denies dyspnea and Denies dyspnea on exertion Respiratory Respiratory: Denies cough, Denies dyspnea, Denies dyspnea on exertion and Denies wheezing Gastrointestinal Gastrointestinal: Denies abdominal pain, Denies change in bowel habits, Denies diarrhea, Denies nausea and Denies vomiting Genitourinary Genitourinary: Denies urinary hesitancy and Denies urinary incontinence Genitourinary: Denies urinary incontinence and Denies urinary hesitancy Musculoskeletal Musculoskeletal: Reports abnormal gait, Denies back pain and Denies neck pain Integumentary/Breasts Skin/Breast: Denies pruritus, Denies erythema, Denies rash and Denies wounds Neurologic Neurologic: Reports as per HPI, Reports abnormal gait, Denies confusion, Reports vertigo, Reports dizziness, Reports headache(s), Reports lack of coordination, Denies localized weakness, Denies loss of vision and Denies weakness Psychiatric Psychiatric: Denies anxiety, Denies confusion, Denies depression, Denies homicidal ideation and Denies suicidal ideation Allergic/Immunologic Allergic/Immunologic: Denies wheezing Patient History Medical History (Updated 02/21/21 @ 17:49 by Sindy Bains DO) Atrial fibrillation Chronic anticoagulation Congestive heart failure Diabetes mellitus Vitamin D deficiency Surgical History History of permanent cardiac pacemaker placement Family History Family/Other Alcohol abuse Father Loud snoring Hypertension Alcohol abuse Mother Loud snoring Depression Alcohol abuse Family/Other Loud snoring Sleep apnea Restless leg Hypertension Diabetes mellitus Heart disease Alcohol abuse Substance abuse Social History household members: significant other Smoking Status: Never smoker alcohol intake: never Smoking Status: Never smoker alcohol intake frequency: 0-2 drinks per day Substance Use Type: does not use Exam Initial Vital Signs Initial Vital Signs: Vital Signs Temperature 97.8 F 02/21/21 14:28 Pulse Rate 68 02/21/21 14:28 Respiratory Rate 16 02/21/21 14:28 Blood Pressure 154/74 H 02/21/21 14:28 Pulse Oximetry 100 02/21/21 14:28 GENERAL: Alert 71-year-old male and in no acute distress. HEENT: Head contusion posteriorly,EOMI, pupils reactive, face symmetric, moist mucous membranes CARDIOVASCULAR: Regular rate and rhythm without murmurs, rubs or gallops. RESPIRATORY: Breath sounds equal bilaterally, no wheezes rales or rhonchi. ABDOMEN: Soft, nontender. Normoactive bowel sounds all 4 quadrants. No guarding or rebound. EXTREMITIES: Normal range of motion, no clubbing or edema. Neurovascularly intact NEUROLOGICAL: Alert and oriented x4. Patient does have some mild slurring of his speech Cranial nerves II through XII grossly intact. Good [id number], good [id number], strength equal bilaterally, no dysarthria or aphasia, sensation in tact to soft touch bilaterally, no visual changes, no facial droop SKIN: Warm, dry, no laceration, no petechiae, no rashes or lesions. Scores GCS [place] coma scale eye opening: Spontaneous [place] coma scale verbal response: Orientated Bobby coma scale motor response: Obey commands [place] coma scale total score: 15 NIH Stroke Scale Level of Conciousness: Alert, keenly responsive Ask month/age: Answers both questions correctly. Open/close eyes, close hand: Performs both tasks correctly Best gaze horizontal: Normal Visual phillips: No visual loss Facial palsy: Normal symetrical movement Left arm drift: No drift for full 10 sec Right arm drift: No drift for full 10 sec Left leg drift: No drift for full 5 sec Limb ataxia: Absent Sensory on face/arms/legs: Normal, no sensory loss Best language: Mild to moderate, slurs some words Dysarthria: Normal Extinction or inattention: No abnormality Course Orders Ordered: ED Orders 02/21/21 14:37 CT cervical spine wo con Stat 02/21/21 14:38 EKG-12 Lead Stat 02/21/21 14:42 CT head/brain wo con Stat 02/21/21 14:43 CT angio head and neck Stat 02/21/21 14:45 COVID19 -Nasal swab/Pre-Proc Stat 02/21/21 14:57 Complete Blood Count AUTO DIFF Stat Comprehensive Metabolic Panel Stat Partial Thromboplastin Time Stat Prothrombin Time INR Stat Troponin & CK Cardiac Panel Stat 02/21/21 15:18 XR chest 1V Stat Nicardipine HCl 25 mg/ Sodium (Chloride) 250 mls @ 50 mls/hr IV TITRATE ANDRIY; Protocol Last Titration: 02/21/21 18:03 Dose: 2.5 mg/hr, 25 mls/hr Documented by: Titration: 02/21/21 17:16 Dose: 1.25 mg/hr, 12.5 mls/hr Documented by: Admin: 02/21/21 15:30 Dose: 5 mg/hr, 50 mls/hr Documented by: GLORIA Discontinued Medications Acetaminophen (Acetaminophen 325 Mg Tablet) 975 mg PO NOW ONE Stop: 02/21/21 18:11 Last Admin: 02/21/21 18:12 Dose: 975 mg Documented by: GLORIA Prothrombin Complex Concent ( Human) 2,000 unit/Miscellaneous 80 mls @ 610.718 mls/hr IV NOW ONE; Protocol Stop: 02/21/21 15:58 Last Infusion: 02/21/21 16:14 Dose: 0 unit/kg/min, 0 mls/hr Documented by: Admin: 02/21/21 16:05 Dose: 3 unit/kg/min, 610.718 mls/hr Documented by: GLORIA Morphine Sulfate (Morphine 4 Mg/Ml Inj) 4 mg IM NOW ONE Stop: 02/21/21 16:49 Last Admin: 02/21/21 16:49 Dose: Not Given Documented by: GLORIA Morphine Sulfate (Morphine 2 Mg/Ml Inj) 2 mg IV NOW ONE Stop: 02/21/21 16:51 Last Admin: 02/21/21 16:52 Dose: 2 mg Documented by: GLORIA Vital Signs Vital signs: Vital Signs - 8 hr 02/21/21 14:28 02/21/21 14:53 02/21/21 14:54 Temperature 97.8 F Pulse Rate 68 69 69 Respiratory Rate 16 Blood Pressure 154/74 H 167/81 H Pulse Oximetry 100 98 98 02/21/21 15:00 02/21/21 15:10 02/21/21 15:14 Temperature Pulse Rate 69 67 68 Respiratory Rate 10 L 19 Blood Pressure 162/82 H 167/83 H 165/89 H Pulse Oximetry 99 100 100 02/21/21 15:20 02/21/21 15:30 02/21/21 15:35 Temperature Pulse Rate 69 74 69 Respiratory Rate 16 20 19 Blood Pressure 162/89 H 150/94 H 151/81 H Pulse Oximetry 100 02/21/21 15:40 02/21/21 15:45 02/21/21 15:50 Temperature Pulse Rate 68 70 68 Respiratory Rate 13 14 15 Blood Pressure 139/74 145/74 H 145/71 H Pulse Oximetry 99 98 99 02/21/21 15:55 02/21/21 15:56 02/21/21 16:00 Temperature Pulse Rate 71 82 70 Respiratory Rate 18 15 Blood Pressure 131/91 H Pulse Oximetry 100 96 99 02/21/21 16:01 02/21/21 16:05 02/21/21 16:10 Temperature Pulse Rate 69 70 71 Respiratory Rate 12 16 14 Blood Pressure 142/68 H 136/71 133/71 Pulse Oximetry 99 98 98 02/21/21 16:15 02/21/21 16:20 02/21/21 16:25 Temperature Pulse Rate 70 72 73 Respiratory Rate 12 11 L 15 Blood Pressure 138/74 137/73 134/68 Pulse Oximetry 97 98 98 02/21/21 16:30 02/21/21 16:35 02/21/21 16:40 Temperature Pulse Rate 82 72 82 Respiratory Rate 16 13 28 H Blood Pressure 133/72 118/63 Pulse Oximetry 96 97 97 02/21/21 16:45 02/21/21 16:50 02/21/21 16:55 Temperature Pulse Rate 80 80 74 Respiratory Rate 22 19 14 Blood Pressure 125/84 123/72 113/66 Pulse Oximetry 97 97 97 02/21/21 17:00 02/21/21 17:05 02/21/21 17:10 Temperature Pulse Rate 75 74 69 Respiratory Rate 9 L 11 L 12 Blood Pressure 129/71 130/74 130/75 Pulse Oximetry 98 99 99 02/21/21 17:15 02/21/21 17:20 02/21/21 17:21 Temperature Pulse Rate 69 79 72 Respiratory Rate 17 24 13 Blood Pressure 132/74 138/81 Pulse Oximetry 98 93 96 02/21/21 17:23 02/21/21 17:25 02/21/21 17:30 Temperature Pulse Rate 69 69 69 Respiratory Rate 12 9 L 10 L Blood Pressure 139/65 132/74 137/75 Pulse Oximetry 99 100 99 02/21/21 17:35 02/21/21 17:40 02/21/21 17:45 Temperature Pulse Rate 70 74 71 Respiratory Rate 15 20 13 Blood Pressure 138/81 146/78 H 141/76 H Pulse Oximetry 99 99 99 02/21/21 17:50 02/21/21 17:55 02/21/21 18:00 Temperature Pulse Rate 71 71 71 Respiratory Rate 12 12 20 Blood Pressure 142/78 H 145/79 H 150/68 H Pulse Oximetry 99 99 99 02/21/21 18:05 02/21/21 18:06 02/21/21 18:10 Temperature Pulse Rate 79 75 70 Respiratory Rate 34 H 38 H 16 Blood Pressure 149/66 H 136/68 Pulse Oximetry 93 96 99 02/21/21 18:15 02/21/21 18:20 02/21/21 18:25 Temperature Pulse Rate 73 77 75 Respiratory Rate 16 18 20 Blood Pressure 131/67 124/65 122/69 Pulse Oximetry 99 99 99 02/21/21 18:30 02/21/21 18:35 Temperature Pulse Rate 74 77 Respiratory Rate 17 Blood Pressure 137/74 Pulse Oximetry 99 98 MDM - Fall Lab Data Attestation: I reviewed the patient's lab results. Result diagrams: 02/21/21 14:57 02/21/21 14:57 Labs: Lab Results 02/21/21 02/21/21 02/21/21 Range/Units 14:45 14:57 14:57 WBC 6.8 (4.5-11.0) X10^3/uL RBC 4.13 L (4.5-5.9) X10^6/uL Hgb 12.5 L (13.5-17.5) g/dL Hct 36.8 L (41-53) % MCV 89.1 (80-100) fL MCH 30.2 (26-34) PG MCHC 33.9 (30-36) % RDW 13.8 (11.6-14.8) % Plt Count 106 L (150-400) X10^3/uL Neut % (Auto) 63.2 (50-75) % Lymph % (Auto) 21.2 L (25-40) % [place] % (Auto) 9.8 (3-14) % Eos % (Auto) 5.0 H (2-4) % Baso % (Auto) 0.8 (0-2) % Neut # (Auto) 4300 (3482-8038) /uL Lymph # (Auto) 1400 (1195-1358) /uL [place] # (Auto) 700 (0-900) /uL Eos # (Auto) 300 (0-450) /uL Baso # (Auto) 100 (0-100) /uL PT 24.4 H (10.1-12.7) SECONDS INR 2.1 H (0.9-1.3) APTT 42 H (26.4-36.2) SECONDS Sodium (137-145) mmol/L Potassium (3.4-5.1) mmol/L Chloride (98-107) mmol/L Carbon Dioxide (22-32) mmol/L BUN (9-20) mg/dL Creatinine (0.66-1.25) mg/dL Estimated GFR (>60) mL/min BUN/Creatinine Ratio (6-22) Glucose (80-110) mg/dL Calcium (8.4-10.2) mg/dL Total Bilirubin (0.2-1.3) mg/dL AST (17-59) IU/L ALT (<50) IU/L Alkaline Phosphatase (38-126) U/L Total Creatine Kinase (55-170) U/L CK-MB (CK-2) (<2.37) ng/mL CK-MB (CK-2) Rel Index (1.5-5.0) % Troponin I (0.01-0.034) ng/mL Total Protein (6.3-8.2) g/dL Albumin (3.5-5.0) g/dL Globulin (1.7-4.1) g/dL Albumin/Globulin Ratio (1.0-2.8) SARS-CoV-2 (PCR) Negative (Negative) 02/21/21 Range/Units 14:57 WBC (4.5-11.0) X10^3/uL RBC (4.5-5.9) X10^6/uL Hgb (13.5-17.5) g/dL Hct (41-53) % MCV (80-100) fL MCH (26-34) PG MCHC (30-36) % RDW (11.6-14.8) % Plt Count (150-400) X10^3/uL Neut % (Auto) (50-75) % Lymph % (Auto) (25-40) % [place] % (Auto) (3-14) % Eos % (Auto) (2-4) % Baso % (Auto) (0-2) % Neut # (Auto) (3383-2623) /uL Lymph # (Auto) (5439-4842) /uL [place] # (Auto) (0-900) /uL Eos # (Auto) (0-450) /uL Baso # (Auto) (0-100) /uL PT (10.1-12.7) SECONDS INR (0.9-1.3) APTT (26.4-36.2) SECONDS Sodium 133 L (137-145) mmol/L Potassium 4.7 (3.4-5.1) mmol/L Chloride 101 (98-107) mmol/L Carbon Dioxide 26 (22-32) mmol/L BUN 19 (9-20) mg/dL Creatinine 1.11 (0.66-1.25) mg/dL Estimated GFR > 60.0 (>60) mL/min BUN/Creatinine Ratio 17.1 (6-22) Glucose 148 H (80-110) mg/dL Calcium 9.3 (8.4-10.2) mg/dL Total Bilirubin 0.5 (0.2-1.3) mg/dL AST 28 (17-59) IU/L ALT 21 (<50) IU/L Alkaline Phosphatase 57 (38-126) U/L Total Creatine Kinase 231 H (55-170) U/L CK-MB (CK-2) 6.95 H (<2.37) ng/mL CK-MB (CK-2) Rel Index 3.0 (1.5-5.0) % Troponin I < 0.012 (0.01-0.034) ng/mL Total Protein 6.4 (6.3-8.2) g/dL Albumin 3.8 (3.5-5.0) g/dL Globulin 2.6 (1.7-4.1) g/dL Albumin/Globulin Ratio 1.5 (1.0-2.8) SARS-CoV-2 (PCR) (Negative) Point of Care Testing Glucose POC [address] scan - head: Radiologist's Impression: PROCEDURE: CT HEAD/BRAIN WO CON INDICATIONS: fall TECHNIQUE: Noncontrast 4.5 mm thick angled axial sections acquired from the foramen magnum to the vertex, with coronal and sagittal reformats. For radiation dose reduction, the following was used: automated exposure control, adjustment of mA and/or kV according to patient size. COMPARISON: [facility], CT, HEAD WITHOUT CONTRAST, 06/10/2017, 22:02. FINDINGS: Image quality: Excellent. CSF spaces: Basal cisterns are patent. There is a small amount of anterior midline subarachnoid hemorrhage. The ventricles are symmetric in size and shape. Brain: No intracranial bleeds or masses. There is cerebral volume loss for age, with resultant ventricular and sulcal prominence. There are periventricular and deep white matter chronic small vessel ischemic changes. There is intracranial internal carotid artery atherosclerosis. Skull and face: Calvarium and visualized facial bones appear intact, without suspicious lesions. Sinuses: Visualized sinuses and mastoids are clear. IMPRESSION: 1. Small subarachnoid hemorrhage anteriorly. Consider post-traumatic versus secondary to aneurysmal rupture. 2. Age-related volume loss and small vessel ischemic change. Comment: It is noted that the patient is scheduled to undergo a CT angiogram. Comment: Findings were discussed with Dr. Marie for Dr. Bains at the time of study dictation on 02/21/2021 at 1457 hours. Dictated by: Onur Moreno M.D. on 02/21/2021 at 14:50 CT - cervical spine: Radiologist's Impression: PROCEDURE: CT CERVICAL SPINE WO CON INDICATIONS: fall +LOC TECHNIQUE: Noncontrast 3 mm thick sections acquired from the skull base to the T4 level. Sagittal and coronal reformats were then constructed. For radiation dose reduction, the following was used: automated exposure control, adjustment of mA and/or kV according to patient size. COMPARISON: [facility], CT, CT HEAD/BRAIN WO CON, 02/21/2021, 14:39. [facility], CR, CHEST 2VW, 05/31/2013, 7:28. FINDINGS: Image quality: Excellent. Bones: No fractures or dislocations. Visualized superior ribs are intact. There is moderate to severe disc space narrowing seen at C5-C6, with associated endplate irregularity and sclerosis. Bridging anterior osteophytes are seen and there are mild posteriorly directed endplate osteophytes at this level. At C6-C7, there is moderate loss of disc height. Minimal anterolisthesis is seen at this level. Bridging anterior osteophytes are seen. Mild post erected endplate osteophytes are seen. Focal degenerative change is seen involving the C1-C2 interface anteriorly. Milder degenerative changes are seen elsewhere. Soft tissues: Prevertebral soft tissues are normal in thickness. No paravertebral hematomas. No apical pneumothoraces. AICD leads are seen. IMPRESSION: No fractures are seen. Cervical spine degenerative changes are seen, which are most prominent inferiorly. AICD leads are partially seen. Dictated by: Danis Solomon M.D. on 02/21/2021 at 13:54 CTA - brain/neck: Radiologist's Impression: PROCEDURE: CT ANGIO HEAD AND NECK INDICATIONS: passed out, can't walk on coumadin TECHNIQUE: After the administration of intravenous contrast, 1 mm thick sections acquired from the aortic arch through the [place] of [place]. Post-contrast 4.5 mm thick sections then re-acquired from the foramen magnum to the vertex. 3-dimensional feviowh-zmybdkxkc-wqljcslkra (MIP) and/or volume rendering reformats were acquired of the central intracranial vasculature and neck separately. COMPARISON: [facility], CT, CT HEAD/BRAIN WO CON, 02/21/2021, 14:39. FINDINGS: Image quality: Excellent. BRAIN: CSF spaces: Ventricles are normal in size and shape. Basal cisterns are patent. Midline anterior subarachnoid hemorrhage is identified in the frontal region. It is not significantly changed. Brain: No midline shift. No intracranial bleeds or masses. Chang-white matter interface appears intact. Age-related volume loss and small vessel ischemic change. Skull and face: Calvarium and facial bones appear intact, without suspicious lesions. Orbits appear normal. Sinuses: Sinuses and mastoids are clear. HEAD CT ANGIOGRAPHY: Anterior circulation: Intracranial internal carotid arteries are normal in size and flow. The flow within the paired anterior cerebral arteries is normal and symmetric. The flow within the middle cerebral arteries is normal and symmetric. The anterior communicating artery is seen. No aneurysms are seen. Posterior circulation: Visualized portions of the vertebral arteries demon strate normal caliber, and join to form a normal appearing basilar artery. Flow within the posterior cerebral arteries is normal and symmetric. No aneurysms are seen. NECK CT ANGIOGRAPHY: Carotid system: The great vessels demonstrate a conventional anatomy as they arise from the aortic arch. The origins of the common carotid arteries appear patent. The common carotid arteries demonstrate normal caliber and courses. There is a less than 50% stenosis of the origin of the left internal carotid artery. The right internal carotid artery is patent. No dissections. Posterior circulation: The origins of the vertebral arteries both appear widely patent. The more superior extracranial portions of both vertebral arteries also demonstrate normal courses and calibers. The distal aspect of the left vertebral artery is mildly diminutive. The right vertebral artery is somewhat dominant. They join to form a normal appearing basilar artery. Soft tissues: Visualized neck soft tissues demonstrate no suspicious abnormalities. Advanced coronary artery calcifications. Pacemaker. Left arm injection with extensive collaterals in the chest wall and neck, indicating left brachiocephalic stenosis or occlusion. Bones: No suspicious bony lesions. Visualized cervical spine appears normally aligned. IMPRESSION: 1. Acute anterior subarachnoid hemorrhage. 2. No underlying aneurysm identified. 3. Age-related volume loss and small vessel ischemic change. 4. No evidence acute stroke or mass. 5. Unremarkable CTA head. No aneurysm, stenosis, occlusion, or filling defect. 6. Less than 50% origin of left internal carotid artery stenosis. 7. Advanced coronary artery disease. 8. 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 Comment: Findings were discussed with Dr. Bains on 02/21/2021 at 1514 hours Any quantitative measurements of stenosis were performed using NASCET criteria. Dictated by: Onur Moreno M.D. on 02/21/2021 at 15:03 ECG Data Attestation: I personally reviewed and interpreted this ECG as follows: Prior ECG tracings: available for review Interpretation: Paced rhythm rate 69 p.r. interval 196 QRS [address] changes MDM Narrative Medical decision making narrative: Difficult to she determine if subarachnoid happened spontaneously versus traumatic. Patient states that she has had some headache off and on for a week or more but gets better with fluids. I who certainly did not feel well this morning very fatigued and passed out hitting his head with positive LOC. Symptoms worsened after that. He is emergently given Kcentra and blood pressure control started on nifedipine 1537 Dr. [facility] at [facility] updated patient's symptoms test results his life reviewed noncontrast head CT at this time will accept but would like to talk to Trauma surgery 1st. Agrees with nicardipine drip with systolic blood pressure goal less than 140 apply and reversal of warfarin [address] Lawson updated patient symptoms test results has reviewed CTA as well not noncontrast head CT, at this time recommends for Neurology to accept patient Patient remains hemodynamically is stable. She speech seems she sat be somewhat improved. I have always been able to understand him but could tell that there was something a little bit off. Patient agrees to go by air lift. I have called and spoken with his niece, she is updated on patient's symptoms test results and recommendations of upon [facility]. At this time she agrees. Critical Care Time Critical Care Time Critical Care Time: Yes Total Critical Care Time: 45 Attestation: The high probability of a clinically significant, sudden or life th reatening deterioration of the [cardiovascular] system(s) required my full and direct attention, intervention and personal management. The aggregate critical care time was [45] minutes. This time is in addition to time spent performing reported procedures but includes the following: [x] Data Review and interpretation [x] Patient assessment and monitoring of vital signs [x] Documentation [x] Medication orders and management Discharge Plan Departure Patient Disposition: [facility] Clinical Impression: Subarachnoid hemorrhage Prescriptions: No Action (DME) GLUCOCARD EXPRESSION LANCETS Qty: 1 RF: 3 aspirin 81 mg tablet,delayed release (DR/EC) 81 mg PO DAILY RF: 0 (DME) GLUCOCARD EXPRESSION TEST STRIPS Qty: 100 RF: 3 gabapentin 600 mg tablet 600 mg PO BID Qty: 180 RF: 3 metformin 1,000 mg tablet 1,000 mg PO BID Qty: 180 RF: 0 carvedilol 6.25 mg tablet 6.25 mg PO BIDWM RF: 0 warfarin 5 mg tablet 1 tab PO SUTUTHSA RF: 0 warfarin 5 mg tablet 2.5 mg PO MOWE RF: 0 rosuvastatin 5 mg tablet 5 mg PO BEDTIME RF: 0 amlodipine 5 mg tablet 5 mg PO DAILY RF: 0 Entresto 49-51 mg tablet 1 tab PO BID RF: 0 fluorouracil 5 % cream 1 applic topical BID RF: 0 Referrals: Alessandro Boo MD [Primary Care Provider] -
[2021-02-21 15:09] LABS: Add Manual Diff / Slide Review NO; Basophils Absolute Auto 100 /uL (0-100); Basophils Percent Auto 0.8 % (0-2); Eosinophils Absolute Auto 300 /uL (0-450); Hematocrit 36.8 % (41-53); Hemoglobin 12.5 g/dL (13.5-17.5); Lymphocytes Absolute Auto 1400 /uL (1100-4500); Lymphocytes Percent Auto 21.2 % (25-40); Mean Corpuscular HGB Conc 33.9 % (30-36); Mean Corpuscular Hemoglobin 30.2 PG (26-34); Mean Corpuscular Volume 89.1 fL (80-100); Monocytes Absolute Auto 700 /uL (0-900); Monocytes Percent Auto 9.8 % (3-14); Neutrophils Absolute Auto 4300 /uL (1500-7000); Neutrophils Percent Auto 63.2 % (50-75); Platelet Count 106 X10^3/uL (150-400); Red Blood Cell Count 4.13 X10^6/uL (4.5-5.9); Red Cell Distribution Width 13.8 % (11.6-14.8); White Blood Cell Count 6.8 X10^3/uL (4.5-11.0)
--- NOTE | 2021-02-21 15:18 | DI.RAD.S_ITS ---
PROCEDURE: XR CHEST 1V INDICATIONS: injury TECHNIQUE: One view of the chest was acquired. COMPARISON: [facility], , CHEST 1 VIEW, 06/10/2017, 21:44. FINDINGS: Surgical changes and devices: Pacemaker, coronary artery stents Lungs and pleura: Lungs are clear. No pleural effusions or pneumothorax. Mediastinum: Mediastinal contours appear normal. Heart size is normal. Bones and chest wall: No suspicious bony lesions. Overlying soft tissues appear unremarkable. IMPRESSION: No evidence acute pulmonary process. Dictated by: Onur Moreno M.D. on 02/21/2021 at 15:51 Approved by: Onur Moreno M.D. on 02/21/2021 at 15:54
[2021-02-21 15:21] LABS: Alanine Aminotransferase 21 IU/L (<50); Albumin 3.8 g/dL (3.5-5.0); Albumin Globulin Ratio 1.5 (1.0-2.8); Alkaline Phosphatase 57 U/L (38-126); Aspartate Aminotransferase 28 IU/L (17-59); BUN Creatinine Ratio 17.1 (6-22); Bilirubin Total 0.5 mg/dL (0.2-1.3); Blood Urea Nitrogen 19 mg/dL (9-20); Calcium 9.3 mg/dL (8.4-10.2); Carbon Dioxide 26 mmol/L (22-32); Chloride 101 mmol/L (98-107); Creatine Kinase 231 U/L (55-170); Estimated Glomerular Filt Rate > 60.0 mL/min (>60); Globulin 2.6 g/dL (1.7-4.1); Glucose 148 mg/dL (80-110); HEMOLYSIS < 15 (0-50); Potassium 4.7 mmol/L (3.4-5.1); Sodium 133 mmol/L (137-145); Total Protein 6.4 g/dL (6.3-8.2)
[2021-02-21] MEDS: NICARDIPINE 25 MG in SODIUM CHLORIDE 0.9% 240 ML 50 ML IV (15:30)
[2021-02-21 15:32] LABS: Troponin I < 0.012 ng/mL (0.01-0.034)
[2021-02-21 15:32] LABS: COVID19 -Nasal RAPID Negative (Negative)
[2021-02-21 15:36] LABS: Creatine Kinase MB 6.95 ng/mL (<2.37)
[2021-02-21 15:46] LABS: INR 2.1 (0.9-1.3); Prothrombin Time 24.4 SECONDS (10.1-12.7)
[2021-02-21 15:49] LABS: PTT Partial Thromboplastin Tim 42 SECONDS (26.4-36.2)
[2021-02-21] MEDS: PROTHROMBIN CPLX(PCC)4FACT 2,000 UNIT in ISOOSMOTIC VEHICLE 0 ML 610.718 ML IV (16:05)
--- NOTE | 2021-02-21 16:18 | PC.NURSE ---
patient awoke and felt funny this morning. He explains that he has some slurring, double vision, ears ringing, hears heart beat on his right side, and fat tongue. He sated that at 0800 he passed out and woke up and fell down. He has a small abrasion on the back of his head that is hemostatic. His neck hurts normally but hurts worse after today 4/10. His right shoulder hurts normally 4/10. His left ribs hurts today after the fall.
[2021-02-21] MEDS: MORPHINE 2 MG/ML INJ IV (16:52)
--- NOTE | 2021-02-21 17:05 | RT ---
Responded to Mod. Trauma/Stroke, pt in CT and no distress noted. On room air with patent airway. Ekg done and released by Rn
[2021-02-21] MEDS: ACETAMINOPHEN 325 MG TABLET 975 MG PO (18:12)
== END 2021-02-21 19:23 | disposition short-term general hospital (02) ==
PROVIDERS: Emergency Provider Emergency Medicine; PCP Student in an Organized Health Care Education/Training Program
DX: I60.9 Nontraumatic subarachnoid hemorrhage, unspecified (principal); I48.91 Unspecified atrial fibrillation; Z79.01 Long term (current) use of anticoagulants; Z20.822 Contact with and (suspected) exposure to COVID-19
CPT/HCPCS: 36415; 70450; 70496; 70498; 71045; 72125; 80053; 82550; 82553; 82962; 84484; 85025; 85610; 85730; 87635; 93005; 93010; 96365; 96375; 99285; 99291; C9803; C9132; J2270